=== PATIENT | female | born 1930 | race Caucasian/White ===

== ENCOUNTER 2017-04-19 11:06 | Inpatient (IN) | payer OTHER, MEDICARE ==
[~2017-04-19 11:06] MED LIST: cefOXitin SODIUM 2 GM in D5W 100 ML IV ONE
[2017-04-19] MEDS ORDERED: LR 1,000 ML IV ONE (12:05)
[2017-04-19] MEDS ORDERED: BUPIVACAINE 0.25% 30 ML SDV ONE ×2 (12:14→17:51)
--- NOTE | 2017-04-19 12:27 | PDHPUP ---
History & Physical Update H&P update statement: This history and physical update is based on an assessment of the patient which was completed after admission or registration (within 24 hours), but prior to the surgery/procedure. H&P update: H&P reviewed & patient examined (repeat labs pending pre-op/patient tolerated bowel prep without difficulty)
[2017-04-19] MEDS ORDERED: MIDAZOLAM 2 MG/2 ML VIAL IVP ONE ×2 (12:33→12:45)
[2017-04-19 12:34] LABS: % IMMATURE GRANULYOCYTES 0.2 % (0.0-1.1); ABSOLUTE IMMATURE GRANULOCYTES 0.01 10^3/uL (0.00-0.10); ADD DIFF? NO; ADD MORPH? NO; ADD SCAN? NO; ATYPICAL LYMPHOCYTE FLAG 0 (0-99); FRAGMENT RBC FLAG 20 (0-99); HEMATOCRIT 34.9 % (38.0-47.0); HEMOGLOBIN 11.3 g/dL (12.6-16.3); LEFT SHIFT FLG 0 (0-99); LIPEMIA HEMOLYSIS FLAG 80 (0-99); MEAN CELL HEMOGLOBIN 30.4 pg (27.9-34.1); MEAN CELL HEMOGLOBIN CONCENTR. 32.4 g/dL (32.4-36.7); MEAN CELL VOLUME 93.8 fL (81.5-99.8); MEAN PLATELET VOLUME 10.6 fL (8.7-11.7); PLATELET CLUMPS FLAG 10 (0-99); PLATELET COUNT 185 10^3/uL (150-400); RED BLOOD CELL COUNT 3.72 10^6/uL (4.18-5.33); RED CELL DISTRIBUTION WIDTH 14.8 % (11.5-15.2)
[2017-04-19] MEDS ORDERED: MIDAZOLAM 2 MG/2 ML VIAL ONE (12:34)
--- NOTE | 2017-04-19 12:34 | PDANEPAE ---
ANE History of Present Illness ap resection ANE Past Medical History - Cardiovascular History Hx Hypertension: Yes Hx Arrhythmias: Yes Hx Chest Pain: No Hx Coronary Artery / Peripheral Vascular Disease: Yes Hx CHF / Valvular Disease: Yes Hx Palpitations: No Cardiovascular History Comment: CAD. CHF. AFIB- CARDIOVERTED 10/27/13 CONT TO BE IN AND OUT - Pulmonary History Hx COPD: Yes Hx Asthma/Reactive Airway Disease: No Hx Recent Upper Respiratory Infection: No Hx Oxygen in Use at Home: Yes O2 in Use at Home (L/minute): 2 Hx Sleep Apnea: No Sleep Apnea Screening Result - Last Documented: Negative Pulmonary History Comment: PULM HTN - Neurologic History Hx Cerebrovascular Accident: Yes Hx Seizures: No Hx Dementia: No Neurologic History Comment: PERIPHERAL NEUROPATHY. 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 HYPOTHYROIDISM - Renal History Hx Renal Disorders: Yes Renal History Comment: CKD STG 3. INCONTINENT WEARS BRIEFS - Liver History Hx Hepatic Disorders: No - Neurological & Psychiatric Hx Hx Neurological and Psychiatric Disorders: Yes Neurological / Psychiatric History Comment: DEPRESSION - Cancer History Hx Cancer: Yes Cancer History Comment: RADIATION FINISHED 04/05/15. CHEMO. RECTAL CA. SKIN CA - Congenital Disorder History Hx Congenital Disorders: No - GI History Hx Gastrointestinal Disorders: Yes Gastrointestinal History Comment: FLEX SIG AND COLON 02/01/15. RECTAL CA - Other Health History Other Health History: ANEMIA. CHRONIC LOWER BACK PAIN - Chronic Pain History Chronic Pain: Yes (CHRONIC BACK PAIN) - Surgical History Prior Surgeries: RAGLAND ANAL EXC RECTAL CA 05/2015. HYSTERECTOMY. BREAST BX MULTIPLE. VEIN IN RIGHT LEG STRIPPED. FLEX SIG AND COLON 02/01/15. WILLIAN CATARACT ANE Review of Systems - Exercise capacity METS (RN): 2 METS ANE Patient History - Allergies Allergies/Adverse Reactions: Iodinated Contrast- Oral and IV Dye [IV Dye, Iodine Containing Contrast ] Allergy (Intermediate, Verified 02/01/15 17:04) Hives iodine [Iodine] Allergy (Intermediate, Verified 02/01/15 17:04) Hives latex Allergy (Verified 04/12/17 10:50) - Home Medications Home Medications: Atorvastatin Calcium [Lipitor 40 mg (*)] 40 mg PO HS 06/08/15 [Last Taken ] Doxazosin Mesylate [Cardura 4 MG (*)] 4 mg PO HS 06/08/15 [Last Taken 04/18/17] Levothyroxine [Synthroid 100 mcg (*)] 100 mcg PO DAILY 06/08/15 [Last Taken 10:00] Zolpidem Tartrate [Ambien 5MG (*)] 5 mg PO HS 06/08/15 [Last Taken 04/18/17] Hydrocodone/Acetaminophen [[place] 5/325 (*)] 1 - 2 tab PO Q4H PRN 06/09/15 [Last Taken 04/19/17 06:00] Torsemide [Demadex] 40 mg PO DAILY 06/09/15 [Last Taken 04/19/17 06:00] Herbals/Supplements -Info Only 1 ea PO DAILY 04/12/17 [Last Taken 04/12/17] Sertraline HCl [Zoloft 50mg (*)] 50 mg PO DAILY 04/12/17 [Last Taken 04/18/17 10 :00] - NPO status NPO Since - Liquids (Date): 04/19/17 NPO Since - Liquids (Time): 06:00 NPO Since - Solids (Date): 04/17/17 NPO Since - Solids (Time): 18:00 - Anes Hx Anes Hx: no prior problems - Smoking Hx Smoking Status: Former smoker - Family Anes Hx Family Hx Anesthesia Complications: NONE ANE Labs/Vital Signs - Labs Result Diagrams: 04/19/17 12:20 04/19/17 12:20 - Vital Signs Blood Pressure: 160/72 Heart Rate: 86 Respiratory Rate: 15 O2 Sat (%): 98 Height: 160.02 cm Weight: 66.678 kg ANE Physical Exam - Airway Mallampati Score: Class 2 Mouth exam: normal dental/mouth exam - Pulmonary Pulmonary: no respiratory distress - Cardiovascular Cardiovascular: regular rate and rhythym - ASA Status ASA Status: III ANE Anesthesia Plan Anesthesia Plan: general endotracheal anesthesia
[2017-04-19] MEDS ORDERED: ONDANSETRON 4 MG/2 ML VIAL ONE (12:43)
[2017-04-19] MEDS ORDERED: DEXAMETHASONE 4 MG/ML VIAL ONE (12:43)
[2017-04-19] MEDS ORDERED: LIDOCAINE 2% 5 ML SDV ONE (12:43)
[2017-04-19] MEDS ORDERED: ROCURONIUM 50 MG/5 ML VIAL ONE ×2 (12:43→13:26)
[2017-04-19 12:44] LABS: ALANINE AMINOTRANSFERASE 30 IU/L (9-52); ALBUMIN 4.1 g/dL (3.5-5.0); ALKALINE PHOSPHATASE 90 IU/L (38-126); ANION GAP 12 mEq/L (8-16); ASPARTATE AMINOTRANSFERASE 35 IU/L (14-46); BILIRUBIN,TOTAL 1.2 mg/dL (0.1-1.4); CALCIUM 9.7 mg/dL (8.5-10.4); CARBON DIOXIDE 26 mEq/l (22-31); CHLORIDE 104 mEq/L (97-110); CREATININE 1.2 mg/dL (0.6-1.0); GLOMERULAR FILTRATION RATE 42; GLUCOSE 98 mg/dL (70-100); MAGNESIUM 2.5 mg/dL (1.6-2.3); POTASSIUM 4.2 mEq/L (3.5-5.2); SODIUM 142 mEq/L (134-144); TOTAL PROTEIN 7.2 g/dL (6.3-8.2)
[2017-04-19] MEDS ORDERED: fentaNYL 100 MCG/2 ML INJ ONE ×3 (12:44→18:42)
[2017-04-19] MEDS ORDERED: PROPOFOL 200 MG/20 ML VIAL ONE (12:44)
[2017-04-19 12:45] LABS: INR 1.11 (0.83-1.16); PROTIME(PATIENT) 14.2 SEC (12.0-15.0)
[2017-04-19 12:46] LABS: APTT 35.6 SEC (23.0-38.0)
[2017-04-19] MEDS ORDERED: ALBUMIN 5% 250 ML BOTTLE IV ONE ×2 (14:19→15:42)
[2017-04-19] MEDS ORDERED: HYDROmorphONE/DILAUDID 2 MG/ML INJ ONE (14:39)
[2017-04-19] MEDS ORDERED: BACITRACIN 50,000 UNITS/10 ML SYR IRR ONE ×2 (14:51→17:30)
[2017-04-19] MEDS ORDERED: FUROSEMIDE 20 MG/2 ML VIAL ONE (15:40)
[2017-04-19] MEDS ORDERED: THROMBIN (BOVINE) 20,000 UNIT VIAL TP ONE (16:00)
[2017-04-19] MEDS ORDERED: LR 1,000 ML IV SCH (16:30)
[2017-04-19] MEDS ORDERED: LORazepam 2 MG/ML INJ IVP PRN (17:12)
[2017-04-19] MEDS ORDERED: SUGAMMADEX SODIUM 200 MG/2 ML VIAL IVP ONE (17:27)
[2017-04-19] MEDS ORDERED: ALBUTEROL 3 ML DEYVIAL IH PRN (17:34)
[2017-04-19] MEDS ORDERED: NALOXONE HCL 0.4 MG/ML INJ IVP PRN (17:34)
--- NOTE | 2017-04-19 18:28 | POSTANESTH ---
Post Anesthetic Evaluation Cardiovascular Status: Normal, Stable Respiratory Status: Normal, Stable Level of Consciousness/Mental Status: Can Participate in Eval Pain Control: Adequate, Prn Tx Ordered Nausea/Vomiting Control: Adequate, Prn Tx Ordered Complications Possibly Related to Anesthesia: None Noted
--- NOTE | 2017-04-19 18:31 | POSTOPPROG ---
Post Op Note Date of Operation: 04/19/17 Surgeon: Erickson Torres (, FACS) [employer] Worker: Malik Sebastian MD Anesthesiologist: Jace Gabriel MD Anesthesia: GET(General Endotracheal) Pre-op Diagnosis: recurrent rectal cancer Post-op Diagnosis: same Procedure: abdominal-perineal resection (Miles procedure) Findings: significant retroperitoneal scarring from RT Inf/Abcess present in the surg proc area at time of surgery?: No EBL: 50-100 (100ml) Complications: left ureteral thermal injury
[2017-04-19] MEDS ORDERED: HYDROmorphONE/DILAUDID 1 MG/ML SYR ONE (18:42)
[2017-04-19] MEDS: fentaNYL 100 MCG/2 ML INJ IVP PRN ×2 (18:50→19:16)
[2017-04-19] MEDS: HYDROmorphONE/DILAUDID 1 MG/ML SYR IVP PRN ×2 (18:51→19:16)
[2017-04-19 19:27] LABS: % IMMATURE GRANULYOCYTES 0.3 % (0.0-1.1); ABSOLUTE IMMATURE GRANULOCYTES 0.03 10^3/uL (0.00-0.10); ADD DIFF? NO; ADD MORPH? NO; ADD SCAN? NO; ATYPICAL LYMPHOCYTE FLAG 0 (0-99); FRAGMENT RBC FLAG 0 (0-99); HEMATOCRIT 30.8 % (38.0-47.0); HEMOGLOBIN 9.8 g/dL (12.6-16.3); LEFT SHIFT FLG 0 (0-99); LIPEMIA HEMOLYSIS FLAG 80 (0-99); MEAN CELL HEMOGLOBIN 30.4 pg (27.9-34.1); MEAN CELL HEMOGLOBIN CONCENTR. 31.8 g/dL (32.4-36.7); MEAN CELL VOLUME 95.7 fL (81.5-99.8); MEAN PLATELET VOLUME 10.6 fL (8.7-11.7); PLATELET CLUMPS FLAG 0 (0-99); PLATELET COUNT 151 10^3/uL (150-400); RED BLOOD CELL COUNT 3.22 10^6/uL (4.18-5.33); RED CELL DISTRIBUTION WIDTH 14.6 % (11.5-15.2)
[2017-04-19 19:43] LABS: ANION GAP 13 mEq/L (8-16); CARBON DIOXIDE 25 mEq/l (22-31); CHLORIDE 104 mEq/L (97-110); CREATININE 1.2 mg/dL (0.6-1.0); GLOMERULAR FILTRATION RATE 42; GLUCOSE 170 mg/dL (70-100); SODIUM 142 mEq/L (134-144)
[2017-04-19] MEDS: DOXAZOSIN MESYLATE 4 MG TAB PO SCH (21:27)
[2017-04-19] MEDS: ATORVASTATIN CALCIUM 40 MG TAB PO SCH (21:27)
[2017-04-19] MEDS: ENOXAPARIN 30 MG/0.3 ML SYR SC SCH (21:28)
[2017-04-19] MEDS: LR 1,000 ML IV SCH (21:28)
[2017-04-19] MEDS: ONDANSETRON 4 MG/2 ML VIAL IVP PRN (21:36)
[2017-04-20] MEDS: cefOXitin SODIUM 2 GM in D5W 100 ML IV SCH ×2 (00:10→13:22)
[2017-04-20] MEDS: LR 1,000 ML IV SCH ×2 (04:36→06:29)
[2017-04-20 05:11] LABS: % IMMATURE GRANULYOCYTES 0.4 % (0.0-1.1); ABSOLUTE IMMATURE GRANULOCYTES 0.05 10^3/uL (0.00-0.10); ADD DIFF? NO; ADD MORPH? NO; ADD SCAN? NO; ATYPICAL LYMPHOCYTE FLAG 0 (0-99); FRAGMENT RBC FLAG 0 (0-99); HEMATOCRIT 26.5 % (38.0-47.0); HEMOGLOBIN 8.4 g/dL (12.6-16.3); LEFT SHIFT FLG 10 (0-99); LIPEMIA HEMOLYSIS FLAG 80 (0-99); MEAN CELL HEMOGLOBIN 30.1 pg (27.9-34.1); MEAN CELL HEMOGLOBIN CONCENTR. 31.7 g/dL (32.4-36.7); MEAN PLATELET VOLUME 10.5 fL (8.7-11.7); PLATELET CLUMPS FLAG 0 (0-99); PLATELET COUNT 138 10^3/uL (150-400); RED BLOOD CELL COUNT 2.79 10^6/uL (4.18-5.33); RED CELL DISTRIBUTION WIDTH 14.7 % (11.5-15.2)
[2017-04-20 05:23] LABS: ANION GAP 12 mEq/L (8-16); CALCIUM 8.5 mg/dL (8.5-10.4); CARBON DIOXIDE 24 mEq/l (22-31); CHLORIDE 106 mEq/L (97-110); CREATININE 1.3 mg/dL (0.6-1.0); GLOMERULAR FILTRATION RATE 39; GLUCOSE 160 mg/dL (70-100); POTASSIUM 4.3 mEq/L (3.5-5.2); SODIUM 142 mEq/L (134-144)
[2017-04-20] MEDS: HYDROCODONE/APAP 5/325 TAB PO PRN ×3 (06:22→23:49)
--- NOTE | 2017-04-20 09:19 | GOP ---
[f rep st] OPERATIVE REPORT DATE OF OPERATION: 04/19/2017 SURGEON: Erickson Torres MD, FACS [place]OE[place]ACK: Malik Sebastian MD. ANESTHESIA: General endotracheal. ANESTHESIOLOGIST: Jace Gabriel MD. PREOPERATIVE DIAGNOSIS: Recurrent rectal cancer, status post neoadjuvant chemoradiation therapy and transanal resection in 2015. POSTOPERATIVE DIAGNOSIS: Recurrent rectal cancer, status post neoadjuvant chemoradiation therapy and transanal resection in 2015. PROCEDURE PERFORMED: Abdominoperineal resection (Miles procedure). FINDINGS: Significant obliteration of natural tissue planes between the rectum and the vagina, and the entire retroperitoneal space in the field of radiation. Mild radiation enteritis, small bowel/terminal ileum. ESTIMATED BLOOD LOSS: 100 mL. DESCRIPTION OF PROCEDURE: After informed consent was obtained, the patient was brought to the operating room and placed under general anesthesia. She was carefully padded and positioned in lithotomy. Rodriuges catheter was placed. The abdomen and perineum were prepped and draped in usual fashion. Before proceeding, a time-out and identification of the patient were performed. The abdomen was entered through a low midline incision with no anterior abdominal wall adhesions observed. The bowel was explored and, other than a few areas of scar tissue in the terminal ileum, there were no interloop adhesions. She had a prior hysterectomy and bilateral salpingo-oophorectomy. 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 There were no strictures observed. At the reflection of the cul-de-sac was an area of ink staining from a prior endoscopic tattoo. There was a firm mass in the rectum palpable through the scarred and inflamed peritoneum. There was no contraindication to proceeding with the surgery and no evidence of peritoneal spread of her disease. The peritoneum on either side of the rectosigmoid junction was incised with cautery and dissection carried out with cautery and the Harmonic Scalpel, taking down the lateral rectal stalks and entering a plane posteriorly through scar obliterated perirectal fat, ultimately freeing up the rectum from the sacral hollow. The mesentery was scored, and the bowel was divided with a single firing of the REJI stapler, leaving approximately 8 cm of sigmoid colon attached to the rectosigmoid junction. The proximal bowel was packed away, and the Omni-Tract retractor was used to facilitate exposure. The peritoneotomy was continued anteriorly, carefully dissecting along the rectal wall to avoid injury to the vagina. The vaginal cuff was particularly scarred to the anterior perirectal fat, but ultimately this plane opened up, and I was able to dissect a considerable distance from above. Dissection continued laterally on both sides and posteriorly until the levator muscles were identified. Going to the perineal portion of the procedure, the anus was sewn shut with a 2-0 Prolene suture, and the perineal incision made in elliptical fashion around the anal orifice and posterior to the vaginal introitus. The patient had some evidence of stenosis in the vaginal introitus that sustained trauma during the prep with a small tear in the vaginal skin. After the skin was incised, cautery was used to dissect in the ischiorectal plane laterally on each side and posteriorly to the tip of the coccyx. Anterior dissection was performed also with cautery, taking care to stay close to the anal rectum and avoid injury to the vagina. It was through the anterior plane that I was first able to enter the peritoneal portion of the dissection and freed up the levators on either side. These were then incised with cautery close to the rectal wall, and hemostasis secured with cautery primarily. This dissection was continued posteriorly on either side until the entire specimen could be delivered through the perineal incision. The posterior attachments of the levator to the tip of the coccyx were incised, and the specimen delivered from the field and submitted for gross inspection as well as permanent section. The significant perirectal scar tissue made it difficult to clinically determine whether this represented postradiation effect or tumor. The levator muscles were reapproximated with interrupted 2-0 Vicryl sutures. The perineal wound was drained with a 19-[place] silicone drain, as the patient was allergic to latex. Otherwise, I would have used a [place] drain. Superficial subcutaneous tissues were approximated over the drain with interrupted 2-0 Vicryl suture, and the skin was closed with 3-0 nylon suture in vertical mattress fashion. Returning to the abdominal portion of the operation, I felt it was necessary to further mobilize the sigmoid colon above the pelvic brim to reach the planned ostomy site. While I was providing traction on the colon from the left side, Dr. Sebastian performed dissection with the Harmonic Scalpel, mobilizing the colon cephalad. The Harmonic Scalpel came in contact with the ureter and, although it was not transected, it appeared to have sustained a thermal injury. The anatomy was confirmed, and I consulted Dr. Ruth, who promptly came to the operating room and assessed the injury and elected to perform a ureteral resection repair over a stent. This will be dictated as a separate operative report. The blood supply to the ureter appeared adequate, and hemostasis was secured within the area using sparing use of Harmonic Scalpel cautery and topical thrombin Gelfoam. After hemostasis appeared secure, the pelvis was irrigated, and a 10 mm flat Yoan-Lamb drain was placed into the dependent portion of the pelvis and brought through the right lower quadrant. The omentum was mobilized from the transverse colon to allow an omental flap to fill the pelvis. This was placed over the left ureter, pelvic brim and into the pelvis. The small bowel and cecum were allowed to return to their anatomic positions. The left-sided ostomy opening was created at the predetermined site , and the distal sigmoid colon was brought up through the ostomy opening in the abdominal wall. Internally, this was secured to the peritoneum with interrupted 2-0 Vicryl sutures. The abdominal cavity was again inspected for hemostasis, which appeared secure. The fascia was closed with continuous running #1 PDS suture. Subcutaneous tissues were irrigated with antibiotic solution, and the skin approximated with dora. Bilateral ON-Q catheters were tunneled adjacent to the incision with 5-inch catheters deployed and secured to the skin with Dermabond and Tegaderm. The ostomy was then matured, resecting the last 2 cm of the distal sigmoid colon. The bowel was everted and secured to the subdermis with interrupted 4-0 chromic sutures. An ostomy appliance was placed. Sterile dressings were applied to the perineum as well as the abdominal incision, and the patient was brought to the recovery room in satisfactory condition, extubated. COMPLICATIONS: Thermal injury to the left ureter near the pelvic brim induced by the Harmonic Scalpel. INTRAOPERATIVE CONSULTATION: With Dr. Michel Ruth obtained for operative repair of left ureteral injury. /[id number]/MODL MTDD
[2017-04-20] MEDS: TORSEMIDE 20 MG TAB PO SCH (09:48)
[2017-04-20] MEDS: ENOXAPARIN 30 MG/0.3 ML SYR SC SCH ×2 (09:49→21:41)
[2017-04-20] MEDS: SERTRALINE HCL 50 MG TAB PO SCH (09:49)
[2017-04-20] MEDS: LEVOTHYROXINE 100 MCG TAB PO SCH (09:52)
--- NOTE | 2017-04-20 11:05 | SOAPPROG ---
SOAP Progress Note Assessment/Plan: Assessment: Plan: Subjective: awake and alert/incisional pain Objective: Vital Signs Temp Pulse Resp BP Pulse Ox 36.7 C 82 15 124/56 H 100 04/20/17 08:00 04/20/17 08:00 04/20/17 08:00 04/20/17 08:00 04/20/17 08:00 Laboratory Results 04/20/17 05:03 04/20/17 05:03 04/19/17 04/20/17 04/21/17 05:59 05:59 05:59 Intake Total 3249 Output Total 788 Balance 2461 PT 14.2 SEC (12.0-15.0) 04/19/17 12:20 INR 1.11 (0.83-1.16) 04/19/17 12:20 Physical Exam - Physical Exam General Appearance: alert, mild distress Respiratory: lungs clear, decreased breath sounds Cardiac/Chest: regular rate, rhythm Abdomen: normal bowel sounds, soft, other (stoma viable/drains serosanguinous) ICD10 Worksheet Patient Problems: Problems Problem Status Onset Diabetes mellitus type 2 Active Gastritis Active Gout Active Hyperlipidemia Active Hypertensive disorder, systemic arterial Active Chronic Disease Management/Transitional Care Program Acute
[2017-04-20] MEDS: ATORVASTATIN CALCIUM 40 MG TAB PO SCH (21:40)
[2017-04-20] MEDS: DOXAZOSIN MESYLATE 4 MG TAB PO SCH (21:40)
[2017-04-20] MEDS: ONDANSETRON 4 MG/2 ML VIAL IVP PRN (21:42)
[2017-04-21] MEDS: LEVOTHYROXINE 100 MCG TAB PO SCH (04:50)
[2017-04-21] MEDS: HYDROCODONE/APAP 5/325 TAB PO PRN ×3 (04:50→18:55)
[2017-04-21 04:51] LABS: HEMATOCRIT 23.1 % (38.0-47.0); HEMOGLOBIN 7.3 g/dL (12.6-16.3); MEAN CELL HEMOGLOBIN 30.3 pg (27.9-34.1); MEAN CELL HEMOGLOBIN CONCENTR. 31.6 g/dL (32.4-36.7); MEAN CELL VOLUME 95.9 fL (81.5-99.8); RED BLOOD CELL COUNT 2.41 10^6/uL (4.18-5.33)
[2017-04-21 05:07] LABS: ANION GAP 8 mEq/L (8-16); CALCIUM 8.2 mg/dL (8.5-10.4); CARBON DIOXIDE 25 mEq/l (22-31); CHLORIDE 105 mEq/L (97-110); CREATININE 1.4 mg/dL (0.6-1.0); GLOMERULAR FILTRATION RATE 35; GLUCOSE 104 mg/dL (70-100); SODIUM 138 mEq/L (134-144)
--- NOTE | 2017-04-21 08:36 | SOAPPROG ---
SOAP Progress Note Assessment/Plan: Assessment:s/p APR for recurrent rectal CA post op blood loss anemia with pre-op anemia due to ongoing GI blood loss rising creat./post op ileus Plan: transfuse one unit PRBC Hospitalist consult 04/21/17 08:33 Objective: Vital Signs Temp Pulse Resp BP Pulse Ox 36.9 C 95 18 108/43 L 96 04/20/17 23:14 04/21/17 04:00 04/21/17 04:00 04/21/17 04:00 04/21/17 04:00 Laboratory Results 04/21/17 04:35 04/21/17 04:35 04/20/17 04/21/17 04/22/17 05:59 05:59 05:59 Intake Total 3249 3606 Output Total 788 1310 Balance 2461 2296 PT 14.2 SEC (12.0-15.0) 04/19/17 12:20 INR 1.11 (0.83-1.16) 04/19/17 12:20 - Pending Discharge Pending Discharge Within 24 Hours: No Pending Discharge Within 48 Hours: No Physical Exam - Physical Exam General Appearance: alert Respiratory: normal breath sounds, decreased breath sounds Cardiac/Chest: regular rate, rhythm Abdomen: soft, other (hypoactive bowel sounds/stoma viable/DARCIE serous) Rectal: deferred, other (DARCIE serous) Neuro/Psych: no motor/sensory deficits, alert ICD10 Worksheet Patient Problems: Problems Problem Status Onset Diabetes mellitus type 2 Active Gastritis Active Gout Active Hyperlipidemia Active Hypertensive disorder, systemic arterial Active Chronic Disease Management/Transitional Care Program Acute
[2017-04-21] MEDS: SERTRALINE HCL 50 MG TAB PO SCH (09:38)
[2017-04-21] MEDS: TORSEMIDE 20 MG TAB PO SCH (09:38)
[2017-04-21] MEDS: ENOXAPARIN 30 MG/0.3 ML SYR SC SCH (09:40)
--- NOTE | 2017-04-21 13:48 | PDGENHP ---
History and Physical - Chief Complaint Acute pelvic pain - History of Present Illness Consultation history and physical Consulting provider: Dr. Torres Reason for consultation: Chronic kidney disease HPI: 87-year-old female presents with acute pelvic pain located in the anterior pelvis, exacerbated by movement and palpation, associated with rectal bleeding. Onset of the bleeding was prior to her surgery and has been going on for quite some time. Onset of the pelvic pain is postoperative and has been alleviated with oral pain medication as well as morphine. Location is mostly the anterior pelvis and she denies overt rectal pain at this time. She also denies any overt shortness of breath or chest pain. She endorses that she is particularly thirsty & hungry for soup broth. Her oral intake since surgery on 04/19 has been very limited and she has continued to receive her home medications including torsemide. History Information - Allergies/Home Medication List Allergies/Adverse Reactions: Iodinated Contrast- Oral and IV Dye [IV Dye, Iodine Containing Contrast ] Allergy (Intermediate, Verified 02/01/15 17:04) Hives iodine [Iodine] Allergy (Intermediate, Verified 02/01/15 17:04) Hives latex Allergy (Verified 04/12/17 10:50) Home Medications: Atorvastatin Calcium [Lipitor 40 mg (*)] 40 mg PO HS 06/08/15 [Last Taken ] Doxazosin Mesylate [Cardura 4 MG (*)] 4 mg PO HS 06/08/15 [Last Taken 04/18/17] Levothyroxine [Synthroid 100 mcg (*)] 100 mcg PO DAILY 06/08/15 [Last Taken 10:00] Zolpidem Tartrate [Ambien 5MG (*)] 5 mg PO HS 06/08/15 [Last Taken 04/18/17] Hydrocodone/Acetaminophen [[place] 5/325 (*)] 1 - 2 tab PO Q4H PRN 06/09/15 [Last Taken 04/19/17 06:00] Torsemide [Demadex] 40 mg PO DAILY 06/09/15 [Last Taken 04/19/17 06:00] Herbals/Supplements -Info Only 1 ea PO DAILY 04/12/17 [Last Taken 04/12/17] Sertraline HCl [Zoloft 50mg (*)] 50 mg PO DAILY 04/12/17 [Last Taken 04/18/17 10 :00] I have personally reviewed and updated: family history, medical history, social history, surgical history - Past Medical History atrial fibrillation (Permanent not currently on systemic anticoagulation secondary to bleeding), coronary artery disease (Nonobstructive, last cardiac catheterization November of 2012), CHF (Diastolic, with ejection fraction of 40-45% , severe mitral regurgitation, moderate to severe tricuspid regurgitation, mild- to-moderate pulmonary hypertension), CVA (Right retinal), diabetes type 2, hypertension, hyperlipidemia, psychiatric history (Depression) Additional medical history: Rectal carcinoma receiving neoadjuvant chemo radiation in 2014. Left bundle branch block. Chronic kidney disease stage 3 with baseline creatinine 1.0-1.6. Neuropathy - Surgical History Additional surgical history: APR revision 04/19/17 Dr. Torres. Transanal resection surgery by Dr. Sebastian 2014. Left ureteral stent placement - Family History Additional family history: No family history of colon or rectal cancer, sister had lung cancer, no history of end-stage renal disease - Social History Smoking Status: Former smoker Alcohol Use: Occasionally (1 alcoholic beverage nightly) Drug Use: None Additional social history: Lives in [place], utilizes a [employer] Review of Systems ROS: 10pt was reviewed & negative except for what was stated in HPI & below Constitutional: Reports: other (Thirst) Gastrointestinal: Reports: abdominal pain Physical Exam Temp Pulse Resp BP Pulse Ox 36.4 C 83 18 99/75 L 96 04/21/17 11:59 04/21/17 11:59 04/21/17 11:59 04/21/17 11:59 04/21/17 11:59 O2 (L/minute) 3 Constitutional: chronically ill appearing, uncomfortable, No no apparent distress (Mild distress), No not in pain Eyes: PERRL, anicteric sclera, EOMI Ears, Nose, Mouth, Throat: hearing normal, dry mucous membranes Cardiovascular: systolic murmur (3/6 at apex), irregularly irregular, No tachycardia, No edema Respiratory: no respiratory distress, no rales or rhonchi, clear to auscultation Gastrointestinal: normoactive bowel sounds, tenderness (Moderate to mild palpation), distension (Mild), other (Central abdominal incision, left-sided ostomy, drains in place) Genitourinary: spencer in urethra (Esther appearing urine) Skin: other (Blood around incision site but no visible erythema) Neurologic: AAOx3, sensation intact bilaterally, No weakness (Motor strength 4/ 5 bilateral lower extremities) Psychiatric: interacting appropriately, not encephalopathic, thought process linear, anxious, No agitated Lab Data & Imaging Review 04/21/17 04:35 04/21/17 04:35 WBC 6.52 10^3/uL (3.80-9.50) 04/21/17 04:35 RBC 2.41 10^6/uL (4.18-5.33) L 04/21/17 04:35 Hgb 7.3 g/dL (12.6-16.3) L 04/21/17 04:35 Hct 23.1 % (38.0-47.0) L 04/21/17 04:35 MCV 95.9 fL (81.5-99.8) 04/21/17 04:35 MCH 30.3 pg (27.9-34.1) 04/21/17 04:35 MCHC 31.6 g/dL (32.4-36.7) L 04/21/17 04:35 RDW 15.0 % (11.5-15.2) 04/21/17 04:35 Plt Count 114 10^3/uL (150-400) L 04/21/17 04:35 MPV 10.5 fL (8.7-11.7) 04/20/17 05:03 Neut % (Auto) 90.3 % (39.3-74.2) H 04/20/17 05:03 Lymph % (Auto) 3.2 % (15.0-45.0) L 04/20/17 05:03 [place] % (Auto) 6.0 % (4.5-13.0) 04/20/17 05:03 Eos % (Auto) 0.0 % (0.6-7.6) L 04/20/17 05:03 Baso % (Auto) 0.1 % (0.3-1.7) L 04/20/17 05:03 Nucleat RBC Rel Count 0.0 % (0.0-0.2) 04/20/17 05:03 Absolute Neuts (auto) 10.54 10^3/uL (1.70-6.50) H 04/20/17 05:03 Absolute Lymphs (auto) 0.37 10^3/uL (1.00-3.00) L 04/20/17 05:03 Absolute Monos (auto) 0.70 10^3/uL (0.30-0.80) 04/20/17 05:03 Absolute Eos (auto) 0.00 10^3/uL (0.03-0.40) L 04/20/17 05:03 Absolute Basos (auto) 0.01 10^3/uL (0.02-0.10) L 04/20/17 05:03 Absolute Nucleated RBC 0.00 10^3/uL (0-0.01) 04/20/17 05:03 Immature Gran % 0.4 % (0.0-1.1) 04/20/17 05:03 Immature Gran # 0.05 10^3/uL (0.00-0.10) 04/20/17 05:03 PT 14.2 SEC (12.0-15.0) 04/19/17 12:20 INR 1.11 (0.83-1.16) 04/19/17 12:20 APTT 35.6 SEC (23.0-38.0) 04/19/17 12:20 Sodium 138 mEq/L (134-144) 04/21/17 04:35 Potassium 4.0 mEq/L (3.5-5.2) 04/21/17 04:35 Chloride 105 mEq/L (97-110) 04/21/17 04:35 Carbon Dioxide 25 mEq/l (22-31) 04/21/17 04:35 Anion Gap 8 mEq/L (8-16) 04/21/17 04:35 BUN 29 mg/dL (7-23) H 04/21/17 04:35 Creatinine 1.4 mg/dL (0.6-1.0) H 04/21/17 04:35 Estimated GFR 35 04/21/17 04:35 Glucose 104 mg/dL (70-100) H 04/21/17 04:35 Calcium 8.2 mg/dL (8.5-10.4) L 04/21/17 04:35 Magnesium 2.5 mg/dL (1.6-2.3) H 04/19/17 12:20 Total Bilirubin 1.2 mg/dL (0.1-1.4) 04/19/17 12:20 AST 35 IU/L (14-46) 04/19/17 12:20 ALT 30 IU/L (9-52) 04/19/17 12:20 Alkaline Phosphatase 90 IU/L (38-126) 04/19/17 12:20 Total Protein 7.2 g/dL (6.3-8.2) 04/19/17 12:20 Albumin 4.1 g/dL (3.5-5.0) 04/19/17 12:20 Patient ABO/Rh A POSITIVE 04/19/17 12:20 Antibody Screen NEGATIVE 04/19/17 12:20 Crossmatch IS Only See Detail 04/19/17 12:20 Enhanced Crossmatch See Detail 04/19/17 12:20 Assessment & Plan Assessment: 87-year-old female presents with recurrent rectal carcinoma requiring a APR revision, evaluating chronic kidney disease and volume status Plan: 1. Chronic kidney disease stage 3. Review of outside records indicates that baseline creatinine is 1.0-1.6, and most recent urine microalbumin to creatinine ratio is 65 (01/03/2017) indicating that she has relatively well controlled proteinuria -she is chronically on torsemide control her lower extremity edema in the setting of CKD well as chronic diastolic congestive heart failure -during the past 2 days postoperatively, the patient's oral intake has been minimal as her postoperative course has been complicated by postop ileus -she has continued to receive her home dosage of torsemide, per her request, and this has most likely resulted in mild hypovolemia although her urine output over the last 24 hours has been good (likely b/c of diuretics), approximately 1 L -this mild hypovolemia will most likely be mitigated by the unit of packed red blood cells she is currently receiving, and although we would normally dose IV Lasix following a blood transfusion in a patient with known CKD and diastolic CHF, would not recommend providing her with additional IV diuretics at this time as she has received her morning dose of 40 mg torsemide -until the patient's oral intake improves, I would recommend either holding or reducing the dosage of torsemide and reassessing her volume status on a daily basis -I have discussed this with the patient, and she is completely averse to holding the torsemide, will only allow us to halve the dosage -will order the torsemide for 20 mg daily tomorrow and hospital Medicine will continue to consult in this patient's care -will continue to monitor her daily creatinine and BUN levels as well as urine output and daily weights -at the present time, I would recommend against administering IV fluids as this will most likely result in hypovolemia and potentially put her into diastolic CHF, and the patient does not currently have acute kidney injury component 2. Permanent atrial fibrillation. Reviewed outside records including discharge summary by Elvia Woo 02/05/2015, reporting that systemic anticoagulation was discontinued secondary to rectal bleeding -currently not on systemic anticoagulation 3. Recurrent rectal carcinoma. Postop day [address] Torres, postop pain management , ostomy, drains under general surgery service -discussed with Dr. Torres, the patient is high risk for DVT, we have agreed to adjust her prophylactic blood thinner to heparin subcu 5000 units q.8 hours 4. Acute postoperative ileus. No significant ostomy stool output as yet, bowel sounds are present on physical exam, patient is hungry and has been placed on a clear liquid diet -continue to monitor for ostomy output 5. Acute blood loss anemia. Evidenced by hemoglobin declined from 11.3 preoperatively to 7.3 with visible evidence of blood loss from the surgical sites -receiving 1 unit PRBC today -monitor hemoglobin level on a daily basis 6. Chronic diastolic congestive heart failure. No evidence of acute exacerbation, she is high risk for volume overload postoperatively and as mentioned above, I would recommend assessing volume status on a daily basis and at this time will continue half dose of home torsemide 7. Left bundle branch block. Chronic, she has known non obstructive coronary disease most recent catheterization 2012, currently without any chest pain - EKG 02/04/15 w/ Afib/LBBB (personally interpreted) 8. Suspected atelectasis. Currently requiring 3 L nasal cannula oxygen, poor inspiratory effort particularly in the bases secondary to abdominal pain, continues incentive spirometer and become more aggressive once her pain is better managed High-level of medical complexity and risk, secondary to the issues outlined above. Hospital Medicine service will continue to consult on this patient's daily care.
[2017-04-21 16:16] LABS: HEMOGLOBIN 9.4 g/dL (12.6-16.3); MEAN CELL HEMOGLOBIN 30.3 pg (27.9-34.1); MEAN CELL HEMOGLOBIN CONCENTR. 32.4 g/dL (32.4-36.7); MEAN CELL VOLUME 93.5 fL (81.5-99.8); RED BLOOD CELL COUNT 3.1 10^6/uL (4.18-5.33); RED CELL DISTRIBUTION WIDTH 16.5 % (11.5-15.2)
[2017-04-21] MEDS: ATORVASTATIN CALCIUM 40 MG TAB PO SCH (20:41)
[2017-04-21] MEDS: DOXAZOSIN MESYLATE 4 MG TAB PO SCH (20:42)
[2017-04-21] MEDS: ZOLPIDEM TARTRATE 5 MG TAB PO PRN (21:42)
[2017-04-22 05:29] LABS: HEMATOCRIT 26.9 % (38.0-47.0); HEMOGLOBIN 8.8 g/dL (12.6-16.3)
[2017-04-22 05:38] LABS: ANION GAP 9 mEq/L (8-16); CALCIUM 8.3 mg/dL (8.5-10.4); CARBON DIOXIDE 26 mEq/l (22-31); CHLORIDE 106 mEq/L (97-110); CREATININE 1.2 mg/dL (0.6-1.0); GLOMERULAR FILTRATION RATE 42; GLUCOSE 86 mg/dL (70-100); POTASSIUM 3.6 mEq/L (3.5-5.2); SODIUM 141 mEq/L (134-144)
[2017-04-22] MEDS: LEVOTHYROXINE 100 MCG TAB PO SCH (06:10)
--- NOTE | 2017-04-22 06:45 | SOAPPROG ---
SOAP Progress Note Assessment/Plan: Assessment:s/p APR for recurrent rectal CA-Hopitalist consult appreciated H/H improved after one unit PRBC post op creat 1.2/UO adequate/DARCIE output up from pelvic drain post op ileus without colostomy output Plan: trial of diet advance increase activity OnQ catheters removed 04/21/17 08:33 04/22/17 06:42 Subjective: wants to try and eat something/awake and alert with good pain control Objective: Vital Signs Temp Pulse Resp BP Pulse Ox 37.2 C 85 12 135/63 H 97 04/22/17 04:03 04/22/17 04:03 04/22/17 04:03 04/22/17 04:03 04/22/17 04:03 Laboratory Results 04/22/17 04:54 04/22/17 04:54 04/21/17 04/22/17 04/23/17 05:59 05:59 05:59 Intake Total 3606 1900 110 Output Total 1310 1644 Balance 2296 256 110 PT 14.2 SEC (12.0-15.0) 04/19/17 12:20 INR 1.11 (0.83-1.16) 04/19/17 12:20 Physical Exam - Physical Exam General Appearance: alert, no apparent distress Respiratory: decreased breath sounds Cardiac/Chest: regular rate, rhythm, irregularly irregular Abdomen: normal bowel sounds, non-tender, soft, distended, other (stoma viable/ incision o.k./DARCIE pelvic drain sero-sang/DARCIE perineal drain-serous) Neuro/Psych: alert, normal mood/affect, oriented x 3 ICD10 Worksheet Patient Problems: Problems Problem Status Onset Diabetes mellitus type 2 Active Gastritis Active Gout Active Hyperlipidemia Active Hypertensive disorder, systemic arterial Active Chronic Disease Management/Transitional Care Program Acute
--- NOTE | 2017-04-22 08:52 | HOSPPROG ---
Hospitalist Progress Note Assessment/Plan: 87-year-old female with known rectal carcinoma, status post abdominal perineal resection on 04/19. Patient has known CKD, stage III, and CHF with diastolic dysfunction. Patient is new to me today. -Chronic kidney disease stage 3: Known baseline creatinine between 1.0 and 1.6. Creatinine today is 1.2. He MODESTA has been negative approximately 600 cc. She is receiving torsemide 20mg per day. Currently awake we are controlling both her volume status and preserving her renal function with this half dose. Plan to continue to watch the creatinine and her I and O. as she continues and improves and has oral intake will return to her full dose of diuretic. -permanent atrial fibrillation: AFib continue since she is off anticoagulation. If there is no signs of bleeding and her hemoglobin remained stable then will restart anticoagulation. Will re-evaluate in 24 hours. -recurrent rectal carcinoma: Pod 3. She is a high risk for DVT. She is currently on prophylactic heparin subcu at 5000 units q.8 hours. For her atrial fibrillation she should be on full-dose anticoagulation. -anemia with blood loss postoperatively and preoperatively. Patient is status post 1 unit PRBC. Hemoglobin currently 8.8. Will continue to follow on a daily basis. -postop ileus: No significant ostomy output. Patient is currently on a clear liquid diet and tolerating it. -chronic diastolic CHF: No signs of decompensation and patient tolerating torsemide at half dose nicely. -mild hypoxemia probably secondary to atelectasis she is currently on 3 L nasal prong oxygen. No significant history of pulmonary disease. -ECG shows LBBB. No complaints of chest pain. ECG is interpreted personally by myself. Plan: Daily CBC and follow the hemoglobin, follow MODESTA and creatinine with regards to her diuretic therapy, follow SA O2 and encourage incentive spirometer , PET activity. Subjective: Reports she is feeling improved though her abdominal pain continues. No nausea vomiting. Limited ostomy output. Urine output and an MODESTA shows a-600. Her pain management is adequate. Objective: Vital Signs Temp Pulse Resp BP Pulse Ox 36.8 C 93 20 148/73 H 91 L 04/22/17 08:30 04/22/17 08:30 04/22/17 08:30 04/22/17 08:30 04/22/17 08:30 Laboratory Results 04/22/17 04:54 04/22/17 04:54 04/21/17 04/22/17 04/23/17 05:59 05:59 05:59 Intake Total 3606 1900 110 Output Total 1310 1644 Balance 2296 256 110 PT 14.2 SEC (12.0-15.0) 04/19/17 12:20 INR 1.11 (0.83-1.16) 04/19/17 12:20 Laboratory Tests 04/19/17 04/19/17 04/22/17 12:20 12:20 04:54 Hgb 11.3 L 8.8 L Creatinine 1.2 H 04/22/17 04:54 Hgb Creatinine 1.2 H - Time Spent With Patient Time Spent with Patient: greater than 35 minutes Time Spent with Patient: Greater than 35 minutes spent on this patients care, greater than 50% of time spent counseling, educating, and coordinating care regarding the above mentioned plan. - Pending Discharge Pending Discharge Within 24 Hours: No Pending Discharge Within 48 Hours: No - Physical Exam Constitutional: no apparent distress Eyes: PERRL Ears, Nose, Mouth, Throat: moist mucous membranes Cardiovascular: irregularly irregular Respiratory: no respiratory distress, no rales or rhonchi Gastrointestinal: normoactive bowel sounds, tenderness, other (Ostomy was limited output. No signs of bleeding) Genitourinary: no bladder fullness Skin: warm Musculoskeletal: generalized weakness Neurologic: AAOx3, CN II-XII Intact ICD10 Worksheet Patient Problems: Problems Problem Status Onset Diabetes mellitus type 2 Active Gastritis Active Gout Active Hyperlipidemia Active Hypertensive disorder, systemic arterial Active Chronic Disease Management/Transitional Care Program Acute
[2017-04-22] MEDS: HYDROCODONE/APAP 5/325 TAB PO PRN ×3 (09:11→18:19)
[2017-04-22] MEDS: TORSEMIDE 20 MG TAB PO SCH (09:12)
[2017-04-22] MEDS: HEPARIN 5,000 UNIT/0.5 ML SYR SC SCH ×3 (09:12→21:35)
[2017-04-22] MEDS: SERTRALINE HCL 50 MG TAB PO SCH (09:12)
[2017-04-22] MEDS: DOXAZOSIN MESYLATE 4 MG TAB PO SCH (20:41)
[2017-04-22] MEDS: ATORVASTATIN CALCIUM 40 MG TAB PO SCH (20:41)
[2017-04-22] MEDS: ZOLPIDEM TARTRATE 5 MG TAB PO PRN (21:35)
[2017-04-23] MEDS: HEPARIN 5,000 UNIT/0.5 ML SYR SC SCH ×3 (05:13→21:01)
[2017-04-23] MEDS: LEVOTHYROXINE 100 MCG TAB PO SCH (05:14)
[2017-04-23 05:26] LABS: HEMATOCRIT 27.3 % (38.0-47.0); HEMOGLOBIN 8.7 g/dL (12.6-16.3)
[2017-04-23 05:41] LABS: ANION GAP 8 mEq/L (8-16); CALCIUM 8.2 mg/dL (8.5-10.4); CARBON DIOXIDE 27 mEq/l (22-31); CHLORIDE 106 mEq/L (97-110); CREATININE 1.2 mg/dL (0.6-1.0); GLOMERULAR FILTRATION RATE 42; GLUCOSE 78 mg/dL (70-100); POTASSIUM 3.4 mEq/L (3.5-5.2); SODIUM 141 mEq/L (134-144)
--- NOTE | 2017-04-23 08:01 | SOAPPROG ---
SOAP Progress Note Assessment/Plan: Assessment:s/p APR for recurrent rectal CA-Hopitalist consult appreciated H/H stable creat 1.2/UO adequate/DARCIE output down from pelvic drain post op ileus without colostomy output yet Plan: trial of diet advance increase activity/perineal drain removal tomorrow Full anticoagulation for A-fib discussed with Dr. Todd 04/21/17 08:33 04/22/17 06:42 04/23/17 07:58 Subjective: gas pains/no nausea Objective: Vital Signs Temp Pulse Resp BP Pulse Ox 36.7 C 94 17 145/71 H 95 04/23/17 04:00 04/23/17 04:00 04/23/17 04:00 04/23/17 04:49 04/23/17 04:00 Laboratory Results 04/23/17 04:32 04/23/17 04:32 04/22/17 04/23/17 04/24/17 05:59 05:59 05:59 Intake Total 1900 1110 Output Total 1644 1762 Balance 256 -652 PT 14.2 SEC (12.0-15.0) 04/19/17 12:20 INR 1.11 (0.83-1.16) 04/19/17 12:20 - Pending Discharge Pending Discharge Within 24 Hours: No Pending Discharge Within 48 Hours: No Physical Exam - Physical Exam General Appearance: mild distress Cardiac/Chest: irregularly irregular Abdomen: soft, distended, other (incision o.k., mild distension with tenderness , stoma viable) ICD10 Worksheet Patient Problems: Problems Problem Status Onset Diabetes mellitus type 2 Active Gastritis Active Gout Active Hyperlipidemia Active Hypertensive disorder, systemic arterial Active Chronic Disease Management/Transitional Care Program Acute
--- NOTE | 2017-04-23 08:44 | HOSPPROG ---
Hospitalist Progress Note Assessment/Plan: 87-year-old female with known rectal carcinoma, status post abdominal perineal resection on 04/19. Patient has known CKD, stage III, and CHF with diastolic dysfunction. New problems today at low potassium at 3.4, mild increase in BP, and question of full dose anticoagulation -Chronic kidney disease stage 3: Known baseline creatinine between 1.0 and 1.6. Creatinine today is 1.2. She is receiving torsemide 20mg per day. Currently awake we are controlling both her volume status and preserving her renal function with this half dose. Plan to continue to watch the creatinine and her I and O. as she continues and improves and has oral intake will return to her full dose of diuretic. -permanent atrial fibrillation: AFib continue since she is off anticoagulation , on prophylactic SC heparin. Prince Vasc 2 score of 7.5% per year risk of stroke. Patient does not want to take coumadin again. She has been off coumadin for Approximately 6 months without incidence. -recurrent rectal carcinoma: Pod 4. She is a high risk for DVT. She is currently on prophylactic heparin subcu at 5000 units q.8 hours. For her atrial fibrillation she should be on full-dose anticoagulation. -anemia with blood loss postoperatively and preoperatively. Patient is status post 1 unit PRBC. Hemoglobin currently 8.8. No signs of bleeding are noted.Will continue to follow on a daily basis. - Hypokalemia: New problem. Will replete orally. -postop ileus: No significant ostomy output. Patient is currently on a clear to full liquid diet and tolerating it. -chronic diastolic CHF: No signs of decompensation and patient tolerating torsemide at half dose nicely. -mild hypoxemia probably secondary to atelectasis she is currently on 3 L nasal prong oxygen. No significant history of pulmonary disease. -ECG shows LBBB. No complaints of chest pain. ECG is interpreted personally by myself. Plan: Daily CBC and follow the hemoglobin, follow MODESTA and creatinine with regards to her diuretic therapy, follow SA O2 and encourage incentive spirometer , Replete potassium. - Disposition: Unknown will need a SNF placement. Time: 40 minutes. Subjective: abdominal pain but not severe pain. No nausea or vomiting. There has been limited ostomy output although her abdomen is less tender than it was yesterday. Objective: Vital Signs Temp Pulse Resp BP Pulse Ox 36.7 C 94 17 145/71 H 95 04/23/17 04:00 04/23/17 04:00 04/23/17 04:00 04/23/17 04:49 04/23/17 04:00 Laboratory Results 04/23/17 04:32 04/23/17 04:32 04/22/17 04/23/17 04/24/17 05:59 05:59 05:59 Intake Total 1900 1110 Output Total 1644 1762 Balance 256 -652 PT 14.2 SEC (12.0-15.0) 04/19/17 12:20 INR 1.11 (0.83-1.16) 04/19/17 12:20 Laboratory Tests 04/19/17 04/21/17 04/21/17 16:29 04:35 16:08 Hgb 9.8 L 7.3 L 9.4 L Potassium 04/22/17 04/23/17 04/23/17 04:54 04:32 04:32 Hgb 8.8 L 8.7 L Potassium 3.4 L - Physical Exam Constitutional: no apparent distress Eyes: PERRL Ears, Nose, Mouth, Throat: moist mucous membranes Cardiovascular: irregularly irregular Respiratory: no respiratory distress, no rales or rhonchi Gastrointestinal: other ( Active bowel sounds though may be hypoactive. There is tenderness about the ostomy site in general in the abdomen but no clear rebound or guarding is noted.) Genitourinary: no bladder fullness Skin: warm Musculoskeletal: generalized weakness Neurologic: AAOx3, CN II-XII Intact Psychiatric: interacting appropriately ICD10 Worksheet Patient Problems: Problems Problem Status Onset Diabetes mellitus type 2 Active Gastritis Active Gout Active Hyperlipidemia Active Hypertensive disorder, systemic arterial Active Chronic Disease Management/Transitional Care Program Acute
--- NOTE | 2017-04-23 09:45 | WOCRNPDOC ---
WOCRN Advanced Assessment Note - Skin Integrity Problem, Advanced Assess Right Sacrum Dressing Type: Open to Air Site Measurement - Head-to-Toe Length X Width X Depth (cm): 5x8x0 Skin Integrity Problem Comment: Healing contusion from fall. No concerns. Intergluteal cleft with mild dermatitis and moisture. No pressure areas found. Incision site around anus approximated with sutures and non erythematic. Wound care will not follow for wounds. Ostomy teaching will be initiated for colostomy. - Colostomy Assessment, Advanced Left Lower Abdomen Colostomy Stoma Colostomy Appliance Intact: Yes Colostomy Appliance Currently in Use: Two Piece Flat Stoma Color: [place] Stoma Turgor: Moist Stoma Shape: Round Stoma Height: Protruding Slightly Colostomy Effluent: Serosangenous, Bloody Colostomy Comment/Treatment Details: Ostomy Education initiated with patient. Discussed options for pouching and products. Questions answered. Asked patient to read through "Understanding your Colostomy" booklet and website project manager will round tomorrow to discuss further. Patient fatigued and overwhelmed somewhat easily so information/dicussion was kept to 15-20 min. RN Miranda reports patient will likely go to SNF so supplies will not be ordered at this time. Patient verbally consented to enroll in [employer] secure start and that will be initiated. Staff to help patient learn to empty pouch as well.
[2017-04-23] MEDS: TORSEMIDE 20 MG TAB PO SCH (09:47)
[2017-04-23] MEDS: SERTRALINE HCL 50 MG TAB PO SCH (09:48)
[2017-04-23] MEDS: HYDROCODONE/APAP 5/325 TAB PO PRN ×4 (09:48→18:49)
[2017-04-23] MEDS: POTASSIUM CL 20 MEQ/15 ML UDCUP PO SCH ×2 (11:05→20:50)
[2017-04-23] MEDS: DOXAZOSIN MESYLATE 4 MG TAB PO SCH (20:50)
[2017-04-23] MEDS: ATORVASTATIN CALCIUM 40 MG TAB PO SCH (20:50)
[2017-04-23] MEDS: ZOLPIDEM TARTRATE 5 MG TAB PO PRN (21:06)
[2017-04-24 05:21] LABS: % IMMATURE GRANULYOCYTES 0.5 % (0.0-1.1); ABSOLUTE IMMATURE GRANULOCYTES 0.03 10^3/uL (0.00-0.10); ADD DIFF? NO; ADD MORPH? NO; ADD SCAN? NO; ATYPICAL LYMPHOCYTE FLAG 0 (0-99); FRAGMENT RBC FLAG 0 (0-99); HEMATOCRIT 26.4 % (38.0-47.0); HEMOGLOBIN 8.4 g/dL (12.6-16.3); LEFT SHIFT FLG 0 (0-99); LIPEMIA HEMOLYSIS FLAG 80 (0-99); MEAN CELL HEMOGLOBIN CONCENTR. 31.8 g/dL (32.4-36.7); MEAN CELL VOLUME 94.3 fL (81.5-99.8); MEAN PLATELET VOLUME 10.7 fL (8.7-11.7); PLATELET CLUMPS FLAG 0 (0-99); PLATELET COUNT 127 10^3/uL (150-400); RED CELL DISTRIBUTION WIDTH 14.8 % (11.5-15.2)
[2017-04-24] MEDS: HEPARIN 5,000 UNIT/0.5 ML SYR SC SCH (05:32)
[2017-04-24] MEDS: LEVOTHYROXINE 100 MCG TAB PO SCH (05:32)
[2017-04-24 05:36] LABS: ANION GAP 7 mEq/L (8-16); CALCIUM 8.2 mg/dL (8.5-10.4); CARBON DIOXIDE 27 mEq/l (22-31); CHLORIDE 105 mEq/L (97-110); CREATININE 1.1 mg/dL (0.6-1.0); GLOMERULAR FILTRATION RATE 47; GLUCOSE 83 mg/dL (70-100); POTASSIUM 3.9 mEq/L (3.5-5.2); SODIUM 139 mEq/L (134-144)
--- NOTE | 2017-04-24 09:30 | SOAPPROG ---
SOAP Progress Note Assessment/Plan: Assessment:s/p APR for recurrent rectal CA-Hopitalist consult appreciated H/H stable creat 1.2/UO adequate/DARCIE output down from pelvic drain post op ileus without significant colostomy output yet Plan: trial of diet advance increase activity/perineal drain removal today Full anticoagulation for A-fib discussed with Dr. Todd 04/21/17 08:33 04/22/17 06:42 04/23/17 07:58 04/24/17 09:27 Subjective: awake/slept poorly Objective: Vital Signs Temp Pulse Resp BP Pulse Ox 36.6 C 91 18 130/64 H 94 04/24/17 04:00 04/24/17 04:00 04/24/17 04:00 04/24/17 04:00 04/24/17 04:00 Laboratory Results 04/24/17 04:36 04/24/17 04:36 04/23/17 04/24/17 04/25/17 05:59 05:59 05:59 Intake Total 1110 1425 Output Total 1762 1375 Balance -652 50 PT 14.2 SEC (12.0-15.0) 04/19/17 12:20 INR 1.11 (0.83-1.16) 04/19/17 12:20 - Pending Discharge Pending Discharge Within 24 Hours: No Pending Discharge Within 48 Hours: No Physical Exam - Physical Exam General Appearance: mild distress Cardiac/Chest: irregularly irregular Abdomen: normal bowel sounds, soft, other (incisions o.k./stoma pink/DARCIE sero sang) Pelvic Exam: other (perineal drain removed) Skin: warm/dry Neuro/Psych: normal mood/affect, oriented x 3 ICD10 Worksheet Patient Problems: Problems Problem Status Onset Diabetes mellitus type 2 Active Gastritis Active Gout Active Hyperlipidemia Active Hypertensive disorder, systemic arterial Active Chronic Disease Management/Transitional Care Program Acute
[2017-04-24] MEDS: SERTRALINE HCL 50 MG TAB PO SCH (09:48)
[2017-04-24] MEDS: POTASSIUM CL 20 MEQ/15 ML UDCUP PO SCH ×2 (09:48→21:00)
[2017-04-24] MEDS: HYDROCODONE/APAP 5/325 TAB PO PRN ×3 (09:48→20:59)
[2017-04-24] MEDS: TORSEMIDE 20 MG TAB PO SCH (09:48)
--- NOTE | 2017-04-24 10:49 | HOSPPROG ---
Hospitalist Progress Note Assessment/Plan: 87-year-old female with known rectal carcinoma, status post abdominal perineal resection on 04/19. Patient has known CKD, stage III, and CHF with diastolic dysfunction. new to my care 04/24 with: #hypokalemia (resolved) #permanent atrial fibrillation: -Prince Vasc 2 score of 7.5% per year risk of stroke. -pt understands risk of stroke while off of anticoagulation and does not want to take coumadin or other anticoagulants with the exception of asa again again. -Chronic kidney disease stage 3: Known baseline creatinine between 1.0 and 1.6. Creatinine today is 1.2. She is receiving torsemide 20mg per day. Currently awake we are controlling both her volume status and preserving her renal function with this half dose. Plan to continue to watch the creatinine and her I and O. as she continues and improves and has oral intake will return to her full dose of diuretic. -recurrent rectal carcinoma: She is a high risk for DVT. will change heparin to lovenox -anemia with blood loss postoperatively and preoperatively. Patient is status post 1 unit PRBC. Hemoglobin currently 8.8. No signs of bleeding are noted.Will continue to follow on a daily basis. - Hypokalemia: New problem. Will replete orally. -postop ileus: No significant ostomy output. Patient is currently on a clear to full liquid diet and tolerating it. -chronic diastolic CHF: No signs of decompensation and patient tolerating torsemide at half dose nicely. -mild hypoxemia probably secondary to atelectasis she is currently on 3 L nasal prong oxygen. No significant history of pulmonary disease. -ECG shows LBBB. No complaints of chest pain. ECG is interpreted personally by myself. Plan: Daily CBC and follow the hemoglobin, follow MODESTA and creatinine with regards to her diuretic therapy, follow SA O2 and encourage incentive spirometer , Replete potassium. - Disposition: Unknown will need a SNF placement. Subjective: good appetite. undure if she is passing flatus. little ostomy output Objective: Vital Signs Temp Pulse Resp BP Pulse Ox 36.6 C 91 18 130/64 H 94 04/24/17 04:00 04/24/17 04:00 04/24/17 04:00 04/24/17 04:00 04/24/17 04:00 Laboratory Results 04/24/17 04:36 04/24/17 04:36 04/23/17 04/24/17 04/25/17 05:59 05:59 05:59 Intake Total 1110 1425 Output Total 1762 1375 Balance -652 50 PT 14.2 SEC (12.0-15.0) 04/19/17 12:20 INR 1.11 (0.83-1.16) 04/19/17 12:20 - Physical Exam Constitutional: no apparent distress, appears nourished, not in pain Cardiovascular: irregularly irregular, No edema Respiratory: no respiratory distress, no rales or rhonchi, clear to auscultation Gastrointestinal: soft, non-tender abdomen, no palpable masses, distension, other (hypoactive bowel sounds) Neurologic: AAOx3, sensation intact bilaterally ICD10 Worksheet Patient Problems: Problems Problem Status Onset Diabetes mellitus type 2 Active Gastritis Active Gout Active Hyperlipidemia Active Hypertensive disorder, systemic arterial Active Chronic Disease Management/Transitional Care Program Acute
--- NOTE | 2017-04-24 18:40 | WOCRNPDOC ---
[facility] Advanced Assessment Note - Colostomy Assessment, Advanced Left Lower Abdomen Colostomy Stoma Colostomy Appliance Intact: Yes Colostomy Appliance Currently in Use: Two Piece Flat, 2 3/4 Stoma Color: Red Stoma Turgor: Moist Stoma Shape: Oval Stoma Height: Protruding Slightly Mucocutaneus Junction: Intact Colostomy Effluent: Serosangenous Colostomy Size - Head-to-Toe Length X Width X Depth (cm): 1 3/4 Peristomal Skin: Intact Colostomy Comment/Treatment Details: Moderate peristomal swelling noted. There is also a purple area distal to the stoma, that may be a contusion from patient pushing appliance against her body with a blanket to brace her abdomen. It may be a deep tissue injury, however it is unclear at this time. It is approx 3 cm long and is shaped like the plastic part of the two piece appliance where the pouch and the faceplate connect in a U. RN Miranda visualized area. Viv stomal skin was cleaned with water and washcloth. A new appliance was measured and a template cut. Patient watched appliance change and verbalized feeling "overwhelmed". Education with patient about two piece appliances vs one piece appliances done. Suggest patient use a one piece appliance for home and future changes. Several one piece appliances will be sent down to the floor. Wound/ small offset printer will follow up again for further teaching. All questions answered and patient was able to participate in removing the tape backing from the faceplate after it was placed on her abdomen and to help roll up the lock and roll pouch.
[2017-04-24] MEDS: ATORVASTATIN CALCIUM 40 MG TAB PO SCH (20:58)
[2017-04-24] MEDS: ZOLPIDEM TARTRATE 5 MG TAB PO PRN (20:58)
[2017-04-24] MEDS: DOXAZOSIN MESYLATE 4 MG TAB PO SCH (20:59)
[2017-04-25] MEDS: LEVOTHYROXINE 100 MCG TAB PO SCH (06:29)
--- NOTE | 2017-04-25 08:21 | SOAPPROG ---
SOAP Progress Note Assessment/Plan: Assessment:s/p APR for recurrent rectal CA-Hopitalist consult appreciated H/H stable/final path remains pending creat 1.1/UO adequate/DARCIE output down from pelvic drain post op ileus without significant colostomy output yet Plan: continue diet advance as tolerated increase activity discussed need for Rodrigues removal with patient who is reluctant due to immobility issues 04/21/17 08:33 04/22/17 06:42 04/23/17 07:58 04/24/17 09:27 04/25/17 08:18 04/25/17 08:21 Subjective: awake and alert/tolerating small amounts of food/no ostomy output yet Objective: Vital Signs Temp Pulse Resp BP Pulse Ox 36.6 C 82 16 148/63 H 95 04/25/17 04:00 04/25/17 04:00 04/25/17 04:00 04/25/17 04:00 04/25/17 04:00 Laboratory Results 04/24/17 04:36 04/24/17 04:36 04/24/17 04/25/17 04/26/17 05:59 05:59 05:59 Intake Total 1425 1300 Output Total 1375 1665 Balance 50 -365 PT 14.2 SEC (12.0-15.0) 04/19/17 12:20 INR 1.11 (0.83-1.16) 04/19/17 12:20 - Pending Discharge Pending Discharge Within 24 Hours: No Pending Discharge Within 48 Hours: No Physical Exam - Physical Exam General Appearance: alert, no apparent distress Respiratory: lungs clear, normal breath sounds Cardiac/Chest: irregularly irregular Abdomen: non-tender, soft, distended, other (incision/stoma o.k.) Skin: warm/dry Neuro/Psych: alert, normal mood/affect ICD10 Worksheet Patient Problems: Problems Problem Status Onset Diabetes mellitus type 2 Active Gastritis Active Gout Active Hyperlipidemia Active Hypertensive disorder, systemic arterial Active Chronic Disease Management/Transitional Care Program Acute
[2017-04-25] MEDS: POTASSIUM CL 20 MEQ/15 ML UDCUP PO SCH (09:54)
[2017-04-25] MEDS: SERTRALINE HCL 50 MG TAB PO SCH (09:54)
[2017-04-25] MEDS: TORSEMIDE 20 MG TAB PO SCH (09:54)
[2017-04-25] MEDS: HYDROCODONE/APAP 5/325 TAB PO PRN ×3 (09:54→20:31)
[2017-04-25] MEDS: ENOXAPARIN 40 MG/0.4 ML SYR SC SCH (09:56)
[2017-04-25] MEDS: ONDANSETRON 4 MG/2 ML VIAL IVP PRN (10:52)
--- NOTE | 2017-04-25 13:16 | HOSPPROG ---
Hospitalist Progress Note Assessment/Plan: 87-year-old female with known rectal carcinoma, status post abdominal perineal resection on 04/19. Patient has known CKD, stage III, and CHF with diastolic dysfunction. new to my care 04/24 with: #hypokalemia (resolved) -refusing po K+ replacement due to gi upset #permanent atrial fibrillation: -Prince Vasc 2 score of 7.5% per year risk of stroke. -pt understands risk of stroke while off of anticoagulation and does not want to take coumadin or other anticoagulants with the exception of asa again again. -Chronic kidney disease stage 3: Known baseline creatinine between 1.0 and 1.6. Creatinine today is 1.2. She is receiving torsemide 20mg per day. Currently awake we are controlling both her volume status and preserving her renal function with this half dose. Plan to continue to watch the creatinine and her I and O. as she continues and improves and has oral intake will return to her full dose of diuretic. -recurrent rectal carcinoma: She is a high risk for DVT. will change heparin to lovenox -anemia with blood loss postoperatively and preoperatively. Patient is status post 1 unit PRBC. Hemoglobin currently 8.8. No signs of bleeding are noted.Will continue to follow on a daily basis. - Hypokalemia: New problem. Will replete orally. -postop ileus: No significant ostomy output. Patient is currently on a clear to full liquid diet and tolerating it. -chronic diastolic CHF: No signs of decompensation and patient tolerating torsemide at half dose nicely. -mild hypoxemia probably secondary to atelectasis she is currently on 3 L nasal prong oxygen. No significant history of pulmonary disease. -ECG shows LBBB. No complaints of chest pain. ECG is interpreted personally by myself. - Disposition: Unknown will need a SNF placement. pt requests to have spencer stay in despite risks of infection Subjective: still feels very weak. no ostomy output. having a hard time ambulating with walker and getting to bathrooms Objective: Vital Signs Temp Pulse Resp BP Pulse Ox 36.7 C 99 16 127/67 H 98 04/25/17 11:23 04/25/17 11:23 04/25/17 11:23 04/25/17 11:23 04/25/17 11:23 Laboratory Results 04/24/17 04:36 04/24/17 04:36 04/24/17 04/25/17 04/26/17 05:59 05:59 05:59 Intake Total 1425 1300 Output Total 1375 1665 270 Balance 50 -365 -270 PT 14.2 SEC (12.0-15.0) 04/19/17 12:20 INR 1.11 (0.83-1.16) 04/19/17 12:20 - Physical Exam Constitutional: no apparent distress, appears nourished, not in pain Cardiovascular: irregularly irregular, No JVD, No edema Respiratory: no respiratory distress, no rales or rhonchi, clear to auscultation Gastrointestinal: soft, non-tender abdomen, no palpable masses, other ( hypoactive bowel sounds) ICD10 Worksheet Patient Problems: Problems Problem Status Onset Hypertensive disorder, systemic arterial Active Gastritis Active Hyperlipidemia Active Diabetes mellitus type 2 Active Gout Active Chronic Disease Management/Transitional Care Program Acute
--- NOTE | 2017-04-25 15:57 | WOCRNPDOC ---
[facility] Advanced Assessment Note - Colostomy Assessment, Advanced Left Lower Abdomen Colostomy Stoma Colostomy Appliance Intact: Yes Colostomy Appliance Currently in Use: Two Piece Flat, 2 3/4 Stoma Color: Red Stoma Turgor: Moist Stoma Shape: Oval Stoma Height: Protruding Slightly Colostomy Effluent: None Colostomy Comment/Treatment Details: Educational follow up done with patient. Patient is hesitant to try and change pouch again today expressing "I dont feel well at all" and opted to wait. She did not have any questions, however was concerned about her stoma not producing output. Spent 15 min with patient discussing osotmy care and products again. Discussed the difficulty in getting a pre-cut appliance as her stoma is oval. She expressed concern about not being able to cut the pouch herself and didnt want to ask her family. There may be caregivers at the [facility] that can cut her pouches for her ahead of time according to the template. Discussed other aspects of care and ostomy support as well. Patient verbalized understanding but also had forgotten some of our teaching from yesterday. Shay student RN's in room for care. accountant budget will round again next week. Please use the one piece ostomy appliances that were given to RN today for ostomy change if ostomy pouch leaks before client strategist rounds. Report to Miranda DIAZ.
[2017-04-25] MEDS ORDERED: ONDANSETRON DISINTEGRATING 4 MG TAB PO PRN (16:30)
[2017-04-25] MEDS: DOXAZOSIN MESYLATE 4 MG TAB PO SCH (20:28)
[2017-04-25] MEDS: ATORVASTATIN CALCIUM 40 MG TAB PO SCH (20:28)
[2017-04-25] MEDS: ZOLPIDEM TARTRATE 5 MG TAB PO PRN (20:30)
[2017-04-25] MEDS ORDERED: POTASSIUM CL 20 MEQ TAB PO SCH (21:00)
[2017-04-26] MEDS: LEVOTHYROXINE 100 MCG TAB PO SCH (05:38)
[2017-04-26] MEDS: TORSEMIDE 20 MG TAB PO SCH (08:34)
[2017-04-26] MEDS: HYDROCODONE/APAP 5/325 TAB PO PRN ×3 (08:34→20:31)
[2017-04-26] MEDS: SERTRALINE HCL 50 MG TAB PO SCH (08:34)
[2017-04-26] MEDS: ENOXAPARIN 40 MG/0.4 ML SYR SC SCH (08:35)
--- NOTE | 2017-04-26 09:02 | SOAPPROG ---
SOAP Progress Note Assessment/Plan: Assessment:s/p APR for recurrent rectal CA-Hopitalist consult appreciated H/H stable/final path T3N0 adenocarcinoma-radial margins clear creat 1.1/UO adequate/DARCIE output down from pelvic drain post op ileus without significant colostomy output yet Plan: continue diet advance as tolerated increase activity DC Rodrigues check DARCIE creat. 04/21/17 08:33 04/22/17 06:42 04/23/17 07:58 04/24/17 09:27 04/25/17 08:18 04/25/17 08:21 04/26/17 08:59 Subjective: walking with walker and RN assist no ostomy output yet Objective: Vital Signs Temp Pulse Resp BP Pulse Ox 36.6 C 85 15 128/63 H 99 04/26/17 04:00 04/26/17 04:00 04/26/17 04:00 04/26/17 04:00 04/26/17 04:00 Laboratory Results 04/24/17 04:36 04/24/17 04:36 04/25/17 04/26/17 04/27/17 05:59 05:59 05:59 Intake Total 1300 1150 Output Total 1665 1675 40 Balance -365 -525 -40 PT 14.2 SEC (12.0-15.0) 04/19/17 12:20 INR 1.11 (0.83-1.16) 04/19/17 12:20 Physical Exam - Physical Exam General Appearance: no apparent distress Abdomen: soft, distended, other (stoma and incision o.k.) Rectal: other (perineal incision o.k.) Skin: warm/dry Neuro/Psych: normal mood/affect, oriented x 3 ICD10 Worksheet Patient Problems: Problems Problem Status Onset Diabetes mellitus type 2 Active Gastritis Active Gout Active Hyperlipidemia Active Hypertensive disorder, systemic arterial Active Chronic Disease Management/Transitional Care Program Acute
--- NOTE | 2017-04-26 11:30 | HOSPPROG ---
Hospitalist Progress Note Assessment/Plan: 87-year-old female with known rectal carcinoma, status post abdominal perineal resection on 04/19. Patient has known CKD, stage III, and CHF with diastolic dysfunction. new to my care 04/24 with: #hypokalemia (resolved) -refusing po K+ replacement due to gi upset #permanent atrial fibrillation: -Prince Vasc 2 score of 7.5% per year risk of stroke. -pt understands risk of stroke while off of anticoagulation and does not want to take coumadin or other anticoagulants with the exception of asa again again. -Chronic kidney disease stage 3: Known baseline creatinine between 1.0 and 1.6. Creatinine today is 1.2. She is receiving torsemide 20mg per day. Currently awake we are controlling both her volume status and preserving her renal function with this half dose. Plan to continue to watch the creatinine and her I and O. as she continues and improves and has oral intake will return to her full dose of diuretic. -recurrent rectal carcinoma: She is a high risk for DVT. will change heparin to lovenox -anemia with blood loss postoperatively and preoperatively. Patient is status post 1 unit PRBC. Hemoglobin currently 8.8. No signs of bleeding are noted.Will continue to follow on a daily basis. - Hypokalemia: New problem. Will replete orally. -postop ileus: No significant ostomy output. Patient is currently on a clear to full liquid diet and tolerating it. -chronic diastolic CHF: No signs of decompensation and patient tolerating torsemide at half dose nicely. -mild hypoxemia probably secondary to atelectasis she is currently on 3 L nasal prong oxygen. No significant history of pulmonary disease. -ECG shows LBBB. No complaints of chest pain. ECG is interpreted personally by myself. - Disposition: Unknown will need a SNF placement. pt requests to have spencer stay in despite risks of infection Subjective: still without ostomy output. no new complaints. improving strength Objective: Vital Signs Temp Pulse Resp BP Pulse Ox 36.8 C 80 16 130/51 H 92 04/26/17 10:29 04/26/17 10:35 04/26/17 10:29 04/26/17 10:35 04/26/17 10:35 Laboratory Results 04/24/17 04:36 04/24/17 04:36 04/25/17 04/26/17 04/27/17 05:59 05:59 05:59 Intake Total 1300 1150 Output Total 1669 9215 440 Balance -365 -525 -440 PT 14.2 SEC (12.0-15.0) 04/19/17 12:20 INR 1.11 (0.83-1.16) 04/19/17 12:20 - Physical Exam Cardiovascular: regular rate and rhythym, no murmur, rub, or gallop Respiratory: no respiratory distress, no rales or rhonchi, clear to auscultation Gastrointestinal: soft, non-tender abdomen, no palpable masses, other ( hypoactive bowel sounds), No guarding, No rebound ICD10 Worksheet Patient Problems: Problems Problem Status Onset Hypertensive disorder, systemic arterial Active Gastritis Active Hyperlipidemia Active Diabetes mellitus type 2 Active Gout Active Chronic Disease Management/Transitional Care Program Acute
[2017-04-26] MEDS: ZOLPIDEM TARTRATE 5 MG TAB PO PRN (20:32)
[2017-04-26] MEDS: ATORVASTATIN CALCIUM 40 MG TAB PO SCH (20:32)
[2017-04-26] MEDS: DOXAZOSIN MESYLATE 4 MG TAB PO SCH (20:32)
[2017-04-27] MEDS: LEVOTHYROXINE 100 MCG TAB PO SCH (06:27)
--- NOTE | 2017-04-27 08:10 | SOAPPROG ---
SOAP Progress Note Assessment/Plan: Assessment: Improving, ostomy functioning and patient more mobile. Cont DARCIE due to OP. Consider transfer to SNF/rehab, d/w patient. Plan: 04/27/17 08:08 04/27/17 08:10 Subjective: Patient feels better, some incisional pain controlled with po meds. Kush po well. Ostomy functioning. Objective: Vital Signs Temp Pulse Resp BP Pulse Ox 36.7 C 76 16 122/56 H 99 04/27/17 07:30 04/27/17 07:30 04/27/17 07:30 04/27/17 07:30 04/27/17 07:30 Laboratory Results 04/24/17 04:36 04/24/17 04:36 04/26/17 04/27/17 04/28/17 05:59 05:59 05:59 Intake Total 1150 950 Output Total 1675 810 Balance -525 140 PT 14.2 SEC (12.0-15.0) 04/19/17 12:20 INR 1.11 (0.83-1.16) 04/19/17 12:20 Alert, NAD Abd soft, [employer] C/D/I Ostomy viable DARCIE serosang, OP 300 overnight ICD10 Worksheet Patient Problems: Problems Problem Status Onset Diabetes mellitus type 2 Active Gastritis Active Gout Active Hyperlipidemia Active Hypertensive disorder, systemic arterial Active Chronic Disease Management/Transitional Care Program Acute
[2017-04-27] MEDS: HYDROCODONE/APAP 5/325 TAB PO PRN ×3 (09:44→20:56)
[2017-04-27] MEDS: SERTRALINE HCL 50 MG TAB PO SCH (09:45)
[2017-04-27] MEDS: TORSEMIDE 20 MG TAB PO SCH ×2 (09:50→09:59)
[2017-04-27] MEDS: ENOXAPARIN 40 MG/0.4 ML SYR SC SCH (09:52)
--- NOTE | 2017-04-27 14:42 | HOSPPROG ---
Hospitalist Progress Note Assessment/Plan: 87-year-old female with known rectal carcinoma, status post abdominal perineal resection on 04/19. Patient has known CKD, stage III, and CHF with diastolic dysfunction. new to my care 04/24 with: #permanent atrial fibrillation: -Prince Vasc 2 score of 7.5% per year risk of stroke. -pt understands risk of stroke while off of anticoagulation and does not want to take coumadin or other anticoagulants with the exception of asa again again. -Chronic kidney disease stage 3: Known baseline creatinine between 1.0 and 1.6. Creatinine today is 1.2. * At baseline -recurrent rectal carcinoma: She is a high risk for DVT - Lovenox -anemia secondary to acute blood loss * Stable -postop ileus: * Resolved * Eating -chronic diastolic CHF: No signs of decompensation * On half dose diuretic * May need to increase on discharge -mild hypoxemia probably secondary to atelectasis she is currently on 3 L nasal prong oxygen. No significant history of pulmonary disease. -ECG shows LBBB. No complaints of chest pain. ECG is interpreted personally by myself. - Disposition: [facility] Subjective: some mild incisional pain. Eating Objective: Vital Signs Temp Pulse Resp BP Pulse Ox 36.7 C 76 16 122/56 H 99 04/27/17 07:30 04/27/17 07:30 04/27/17 07:30 04/27/17 07:30 04/27/17 07:30 Laboratory Results 04/24/17 04:36 04/24/17 04:36 04/26/17 04/27/17 04/28/17 05:59 05:59 05:59 Intake Total 1150 950 Output Total 1675 810 250 Balance -525 140 -250 PT 14.2 SEC (12.0-15.0) 04/19/17 12:20 INR 1.11 (0.83-1.16) 04/19/17 12:20 - Physical Exam Constitutional: no apparent distress, appears nourished, not in pain Eyes: anicteric sclera, EOMI Ears, Nose, Mouth, Throat: moist mucous membranes Cardiovascular: regular rate and rhythym, systolic murmur Respiratory: no respiratory distress, no rales or rhonchi, clear to auscultation Gastrointestinal: normoactive bowel sounds, soft, non-tender abdomen, no palpable masses, other (Colostomy) Skin: warm Neurologic: AAOx3 Psychiatric: interacting appropriately, not anxious, not encephalopathic, thought process linear ICD10 Worksheet Patient Problems: Problems Problem Status Onset Diabetes mellitus type 2 Active Gastritis Active Gout Active Hyperlipidemia Active Hypertensive disorder, systemic arterial Active Chronic Disease Management/Transitional Care Program Acute
[2017-04-27 16:08] LABS: COLOR YELLOW; LEUKOCYTE ESTERASE,URINE 3+ (NEGATIVE); NITRITE,URINE POSITIVE (NEGATIVE)
[2017-04-27 16:18] LABS: BACTERIA TRACE /hpf (NONE SEEN); MUCUS TRACE /lpf (NONE-1+); RBC,URINE 50-182 /hpf (0-3); WBC,URINE 50-182 /hpf (0-3)
[2017-04-27] MEDS: ZOLPIDEM TARTRATE 5 MG TAB PO PRN (20:52)
[2017-04-27] MEDS: ATORVASTATIN CALCIUM 40 MG TAB PO SCH (20:52)
[2017-04-27] MEDS: DOXAZOSIN MESYLATE 4 MG TAB PO SCH (20:52)
[2017-04-28] MEDS: LEVOTHYROXINE 100 MCG TAB PO SCH (04:39)
[2017-04-28] MEDS ORDERED: HYDROCODONE/APAP 5/325 TAB PO PRN (07:49)
--- NOTE | 2017-04-28 07:49 | SOAPPROG ---
SOAP Progress Note Assessment/Plan: Assessment: Improving, reg diet. Plan SNF when available. Cont DARCIE due to OP. Plan: 04/27/17 08:08 04/27/17 08:10 04/28/17 07:48 Subjective: Patient feels better, pain improved. Ambulating with assist. Kush po well, ostomy functioning. Objective: Vital Signs Temp Pulse Resp BP Pulse Ox 36.4 C 81 18 120/60 96 04/28/17 04:00 04/28/17 04:00 04/28/17 04:00 04/28/17 04:00 04/28/17 04:00 Laboratory Results 04/24/17 04:36 04/24/17 04:36 04/27/17 04/28/17 04/29/17 05:59 05:59 05:59 Intake Total 950 750 Output Total 810 800 Balance 140 -50 PT 14.2 SEC (12.0-15.0) 04/19/17 12:20 INR 1.11 (0.83-1.16) 04/19/17 12:20 Alert, NAD Abd soft, [employer] C/D/I DARCIE serous ICD10 Worksheet Patient Problems: Problems Problem Status Onset Diabetes mellitus type 2 Active Gastritis Active Gout Active Hyperlipidemia Active Hypertensive disorder, systemic arterial Active Chronic Disease Management/Transitional Care Program Acute
[2017-04-28 08:01] VITALS: TEMP 97.9
[2017-04-28 08:35] VITALS: BP 139/76; PULSE 72; RESP 16; O2SAT 96
[2017-04-28] MEDS: SERTRALINE HCL 50 MG TAB PO SCH (09:17)
[2017-04-28] MEDS: TORSEMIDE 20 MG TAB PO SCH (09:17)
[2017-04-28] MEDS: ENOXAPARIN 40 MG/0.4 ML SYR SC SCH (09:18)
--- NOTE | 2017-04-28 12:53 | PDIAF ---
- Diagnosis Diagnosis: rectal cancer Code Status: Full Code - Medication Management Discharge Medications: Medications to Continue on Transfer Atorvastatin Calcium [Lipitor 40 mg (*)] 40 mg PO HS 06/08/15 [Last Taken ] Doxazosin Mesylate [Cardura 4 MG (*)] 4 mg PO HS 06/08/15 [Last Taken 04/18/17] Levothyroxine [Synthroid 100 mcg (*)] 100 mcg PO DAILY 06/08/15 [Last Taken 10:00] Zolpidem Tartrate [Ambien 5MG (*)] 5 mg PO HS 06/08/15 [Last Taken 04/18/17] Herbals/Supplements -Info Only 1 ea PO DAILY 04/12/17 [Last Taken 04/12/17] Sertraline HCl [Zoloft 50mg (*)] 50 mg PO DAILY 04/12/17 [Last Taken 04/18/17 10 :00] Cefuroxime Axetil [Ceftin] 250 mg PO BID 7 Days 04/28/17 [Last Taken Unknown] Hydrocodone/Acetaminophen [Hydrocodon-Acetaminophn 10-325] 1 - 2 each PO Q6 PRN #1 tablet 04/28/17 [Last Taken Unknown] Torsemide [Demadex] 20 mg PO DAILY #1 tablet 04/28/17 [Last Taken Unknown] Snf Antibiotics: Ceftin 250 mg po bid Snf Antibiotic Stop Date: 05/05/17 Discharge Medications: Refer to the Discharge Home Medication list for PRN reason. - Orders Services needed: Physical Therapy, Occupational Therapy - Follow Up Care Current Providers and Referrals: Melonie Zuniga MD [Primary Care Provider] - Erickson Torres MD [Medical Doctor] - follow up in 2 weeks
--- NOTE | 2017-04-28 16:37 | GDS ---
[f rep st] DISCHARGE SUMMARY DISCHARGE DIAGNOSES: 1. Recurrence of rectal cancer status post resection. 2. Chronic kidney disease. 3. Atrial fibrillation. 4. Anemia secondary to acute blood loss. 5. Chronic hypoxic respiratory failure. 6. Urinary tract infection. HISTORY: An 87-year-old female who presented with elective abdominoperineal resection of rectal can cer. HOSPITAL COURSE: The patient was admitted. The patient underwent surgery without complication. Sushma sanders was transfused a unit of packed red blood cells. She had done well from a recovery standpoint and had no major complications. She did have a urinary tract infection toward the end of her hospitalization. She will be treated w ith 7 days of Ceftin for that. We also decreased her furosemide from 40 mg to 20 mg and she has bee n tolerating that well. If she does begin to develop more edema, then I would recommend increasing that back to 40 mg daily. [facility]POSITION[facility] DISCHARGE MEDICATIONS: Please see medication list. FOLLOWUP INSTRUCTIONS: She is instructed to follow up with Dr. Torres in 2 weeks. TIME SPENT: Greater than 30 minutes was spent on discharge. /[id number]/MODL
--- NOTE | 2017-05-20 15:26 | GOP ---
[f rep st] OPERATIVE REPORT DATE OF OPERATION: 04/19/2017 SURGEON: Michel Ruth MD PREOPERATIVE DIAGNOSIS: Left ureteral injury. POSTOPERATIVE DIAGNOSIS: Left ureteral injury. PROCEDURE PERFORMED: Resection of segment of ureter, and primary ureteroureterostomy over a uretera l stent. FINDINGS: INDICATIONS: The patient is a lady, who underwent an abdominoperineal resection for recurrent recta l cancer by Drs. Torres and Romulo. During dissection of the left peritoneal sidewall, an injury to the left ureter occurred. Urology consultation was requested. Examination showed a Harmonic scalpe l thermal injury to a small segment of the lower left ureter. At this point, it was decided to exci se this segment and perform a primary ureteroureterostomy. DESCRIPTION OF PROCEDURE: With exposure, the portion of the ureter that had been thermally injured was excised. The edges of the ureter were then each spatulated. A 6-Icelandic ureteral stent was pass ed within the operative field, and a running closure using 4-0 PDS was used for the ureteroureterost charanjit. At this point, the remaining portion of the procedure was performed by Dr. Torres, and a portion of the omentum was placed over the area of repair. A second Yoan-Lamb drain was placed, as wel l. For this portion the procedure, there was no bleeding or complications. /[id number]/MODL
== END 2017-04-28 13:10 | DRG 330 ==
LOC: F3E 11:06 → F1N 19:55
PROVIDERS: ADMIT Surgery; ATTEND Surgery
PROC: 0D1N0Z4 Bypass Sigmoid Colon to Cutaneous, Open Approach (ICD-10-PCS; principal; 2017-04-19 13:00)
PROC: 0DTP0ZZ Resection of Rectum, Open Approach (ICD-10-PCS; principal; 2017-04-19 13:00)
PROC: 0T170Z7 Bypass Left Ureter to Left Ureter, Open Approach (ICD-10-PCS; principal; 2017-04-19 13:00)
PROC: 30233N1 Transfusion of Nonautologous Red Blood Cells into Peripheral Vein, Percutaneous Approach (ICD-10-PCS; 2017-04-21)
DX: C20 Malignant neoplasm of rectum (principal); D62 Acute posthemorrhagic anemia; J96.11 Chronic respiratory failure with hypoxia; N39.0 Urinary tract infection, site not specified; I13.0 Hypertensive heart and chronic kidney disease with heart failure and stage 1 through stage 4 chronic kidney disease, or unspecified chronic kidney disease; I50.32 Chronic diastolic (congestive) heart failure; J98.11 Atelectasis; K52.0 Gastroenteritis and colitis due to radiation; N18.3 Chronic kidney disease, stage 3 (moderate); T81.89XA Other complications of procedures, not elsewhere classified, initial encounter; T28.3XXA Burn of internal genitourinary organs, initial encounter; I48.2 Chronic atrial fibrillation; E03.9 Hypothyroidism, unspecified; M10.9 Gout, unspecified; E11.9 Type 2 diabetes mellitus without complications; E78.5 Hyperlipidemia, unspecified; Z87.891 Personal history of nicotine dependence; I44.7 Left bundle-branch block, unspecified; I25.10 Atherosclerotic heart disease of native coronary artery without angina pectoris
CPT/HCPCS: 97116-GP; 97161-GP; 97166-GO; 97530-GO; 97530-GP; 97535-GO; C1769; C2625; G8978-GP-CL; G8979-GP-CJ; G8987-GO-CL; G8988-GO-CI; J0694; J0696; J1100; J1170; J1650; J1940; J2250; J2405; J2704; J3010; P9016; P9041

== ENCOUNTER 2017-07-04 11:49 | Emergency (ER) | payer OTHER, MEDICARE ==
--- NOTE | 2017-07-04 13:00 | EDPHY ---
H & P Stated Complaint: Syncope? vomiting Time Seen by Provider: 07/04/17 12:59 HPI/ROS: CHIEF COMPLAINT: Vomiting, single episode of syncope HISTORY OF PRESENT ILLNESS: The patient presents to the ED after a episode of vomiting followed by syncope. The patient attributes her symptoms secondary to taking a potassium pill. The patient did fall landing on her coccyx. She complains of mild sacral pain. She has been unable to get up and ambulate secondary to pain. The patient did not strike her head or lose consciousness. She has no complaints of headache, neck pain, chest pain, shortness of breath, fever, vomiting or urinary symptoms. The patient was treated for urinary tract infection approximately 1 week ago. The patient denies any additional traumatic complaints. The patient reports she is not anticoagulated. REVIEW OF SYSTEMS: A comprehensive 10 point review of systems is otherwise negative aside from elements mentioned in the history of present illness. Source: Patient Exam Limitations: No limitations - Personal History Current Tetanus/Diphtheria Vaccine: Unsure Current Tetanus Diphtheria and Acellular Pertussis (TDAP): Unsure Tetanus Vaccine Date: current - Medical/Surgical History Hx Asthma: No Hx Chronic Respiratory Disease: Yes Hx Diabetes: Yes Hx Cardiac Disease: Yes Hx Renal Disease: Yes Hx Cirrhosis: No Hx Alcoholism: No Hx HIV/AIDS: No Hx Splenectomy or Spleen Trauma: No Other PMH: S/P HYST;CHRONIC AFIB W/ 5 CARDIOVERSION'S;LBBB;RENAL INSUFF.;HTN;CVA ;HYPOTHYROIDISM;DIABETES;GOUT;DEPRESSION;RECURRENT RECTAL CANCERASTHMA;ANEMIA - Social History Smoking Status: Former smoker - Physical Exam Exam: General Appearance: Elderly female, no acute distress Head: Small contusion, nonsuturable laceration Eyes: Pupils equal and round no pallor or injection ENT, Mouth: Mucous membranes moist Respiratory: There are no retractions, lungs are clear to auscultation Cardiovascular: Regular rate and rhythm Gastrointestinal: Ostomy is pink, no focal abdominal tenderness Neurological: A&O, normal motor function, normal sensory exam, normal cranial nerves Skin: Warm and dry, no rashes Musculoskeletal: Tenderness to palpation noted throughout the sacral area, no crepitus or hematoma noted Extremities: symmetrical, full range of motion Constitutional: Initial Vital Signs Temperature (C) 36.6 C 07/04/17 11:55 Heart Rate 77 07/04/17 11:55 Respiratory Rate 18 07/04/17 11:55 Blood Pressure 150/61 H 07/04/17 11:55 O2 Sat (%) 88 L 07/04/17 11:55 O2 Delivery Mode Nasal Cannula O2 (L/minute) 2 Allergies/Adverse Reactions: Iodinated Contrast- Oral and IV Dye [IV Dye, Iodine Containing Contrast ] Allergy (Intermediate, Verified 02/01/15 17:04) Hives iodine [Iodine] Allergy (Intermediate, Verified 02/01/15 17:04) Hives kiwi Allergy (Verified 07/04/17 11:58) latex Allergy (Verified 04/12/17 10:50) Home Medications: Medication Instructions Recorded Atorvastatin Calcium [Lipitor 40 40 mg PO HS 06/08/15 mg (*)] Doxazosin Mesylate [Cardura 4 MG 4 mg PO HS 06/08/15 (*)] Levothyroxine [Synthroid 100 mcg 100 mcg PO DAILY 06/08/15 (*)] Zolpidem Tartrate [Ambien 5MG (*)] 5 mg PO HS 06/08/15 Herbals/Supplements -Info Only 1 ea PO DAILY 04/12/17 Sertraline HCl [Zoloft 50mg (*)] 50 mg PO DAILY 04/12/17 Cefuroxime Axetil [Ceftin] 250 mg PO BID 7 Days tab 04/28/17 Hydrocodone/Acetaminophen 1 - 2 each PO Q6 PRN #1 tablet 04/28/17 [Hydrocodon-Acetaminophn 10-325] Torsemide [Demadex] 20 mg PO DAILY #1 tablet 04/28/17 Medical Decision Making - Diagnostics EKG Interpretation: EKG: Complete interpretation has been separately recorded in the [facility] archive. Summary impression: AFib, rate 77, left bundle branch block Imaging Results: Imaging Impressions Pelvis X-Ray 07/04/17 13:11 Impression: 1. Recommend CT of the pelvis for further evaluation of the sacrum. 2. No definite iliac bone fracture. 3. Degenerative lower lumbar spine. Findings and recommendations discussed with Emergency Department physician, Dr. Shoaib Joe at 1536 hours on July 04, 2017. Final report concurs with initial preliminary interpretation. ED Course/Re-evaluation: The patient presents to the ED after a syncopal episode from vomiting. The patient's abdominal examination is benign. The patient's EKG demonstrates chronic atrial fibrillation. The patient is noted to be neurologically intact. Her atrial fibrillation shoulder. The patient is not anticoagulated. Her chief traumatic complaints sacral pain. She has minimal tenderness in her sacrum. Pelvic x-ray in straight evidence of a ring, pubic ramus or hip fracture. The patient is ambulatory in the Emergency department. She is feeling better after receiving IV fluids. She is ambulatory. The patient would like to be discharged home. At this point time she has no evidence of any abnormal vital signs. She has no evidence of a significant fracture on her x-ray. She does understand that we cannot exclude a school insufficiency fracture but given the fact she is ambulatory I do not feel that this needs to be pursued. The patient will be discharged home and instructed to follow up with her primary care provider as scheduled. Differential Diagnosis: Differential diagnosis considered includes arrhythmia, anemia, metabolic abnormality, renal failure, pelvic fracture, hip fracture, sacral fracture - Data Points Laboratory Results: Laboratory Results 07/04/17 11:55 07/04/17 11:55 07/04/17 07/04/17 11:55 11:55 WBC 6.07 10^3/uL 10^3/uL (3.80-9.50) RBC 3.73 10^6/uL L 10^6/uL (4.18-5.33) Hgb 10.3 g/dL L g/dL (12.6-16.3) Hct 33.7 % L % (38.0-47.0) MCV 90.3 fL fL (81.5-99.8) MCH 27.6 pg L pg (27.9-34.1) MCHC 30.6 g/dL L g/dL (32.4-36.7) RDW 14.5 % % (11.5-15.2) Plt Count 172 10^3/uL 10^3/uL (150-400) MPV 11.9 fL H fL (8.7-11.7) Neut % (Auto) 81.9 % H % (39.3-74.2) Lymph % (Auto) 9.2 % L % (15.0-45.0) [place] % (Auto) 6.1 % % (4.5-13.0) Eos % (Auto) 1.8 % % (0.6-7.6) Baso % (Auto) 0.7 % % (0.3-1.7) Nucleat RBC Rel Count 0.0 % % (0.0-0.2) Absolute Neuts (auto) 4.97 10^3/uL 10^3/uL (1.70-6.50) Absolute Lymphs (auto) 0.56 10^3/uL L 10^3/uL (1.00-3.00) Absolute Monos (auto) 0.37 10^3/uL 10^3/uL (0.30-0.80) Absolute Eos (auto) 0.11 10^3/uL 10^3/uL (0.03-0.40) Absolute Basos (auto) 0.04 10^3/uL 10^3/uL (0.02-0.10) Absolute Nucleated RBC 0.00 10^3/uL 10^3/uL (0-0.01) Immature Gran % 0.3 % % (0.0-1.1) Immature Gran # 0.02 10^3/uL 10^3/uL (0.00-0.10) Sodium 142 mEq/L mEq/L (134-144) Potassium 4.0 mEq/L mEq/L (3.5-5.2) Chloride 106 mEq/L mEq/L (97-110) Carbon Dioxide 24 mEq/l mEq/l (22-31) Anion Gap 12 mEq/L mEq/L (8-16) BUN 36 mg/dL H mg/dL (7-23) Creatinine 1.2 mg/dL H mg/dL (0.6-1.0) Estimated GFR 42 Glucose 167 mg/dL H mg/dL (70-100) Calcium 9.5 mg/dL mg/dL (8.5-10.4) Departure - Departure Disposition: Home, Routine, Self-Care Clinical Impression: Syncope, Vomiting, Sacral contusion Condition: Good Instructions: Syncope (ED) Additional Instructions: 1. Please return to the ED for headache, recurrent vomiting, numbness, weakness , worsening pain or other concerns. 2. Please follow up with your primary care provider as scheduled. Referrals: Melonie Zuniga MD [Primary Care Provider] - As per Instructions
--- NOTE | 2017-07-04 13:00 | CPEKG ---
Heart Rate: 77 RR Interval: 779 QRSD Interval: 152 QT Interval: 432 QTC Interval: 489 QRS [place]: -30 T Wave [place]: 134 EKG Severity - ABNORMAL ECG - EKG Impression: ATRIAL FIBRILLATION, V-RATE 59-96 EKG Impression: LEFT BUNDLE BRANCH BLOCK Electronically Signed By: Shoaib Joe 04-Jul-2017 21:13:43
[2017-07-04 13:08] LABS: % IMMATURE GRANULYOCYTES 0.3 % (0.0-1.1); ABSOLUTE IMMATURE GRANULOCYTES 0.02 10^3/uL (0.00-0.10); ADD DIFF? NO; ADD MORPH? NO; ADD SCAN? NO; ATYPICAL LYMPHOCYTE FLAG 0 (0-99); FRAGMENT RBC FLAG 0 (0-99); HEMATOCRIT 33.7 % (38.0-47.0); HEMOGLOBIN 10.3 g/dL (12.6-16.3); LEFT SHIFT FLG 0 (0-99); LIPEMIA HEMOLYSIS FLAG 80 (0-99); MEAN CELL HEMOGLOBIN 27.6 pg (27.9-34.1); MEAN CELL HEMOGLOBIN CONCENTR. 30.6 g/dL (32.4-36.7); MEAN CELL VOLUME 90.3 fL (81.5-99.8); MEAN PLATELET VOLUME 11.9 fL (8.7-11.7); PLATELET CLUMPS FLAG 10 (0-99); PLATELET COUNT 172 10^3/uL (150-400); RED BLOOD CELL COUNT 3.73 10^6/uL (4.18-5.33); RED CELL DISTRIBUTION WIDTH 14.5 % (11.5-15.2)
[2017-07-04 13:27] LABS: CALCIUM 9.5 mg/dL (8.5-10.4); CARBON DIOXIDE 24 mEq/l (22-31); CREATININE 1.2 mg/dL (0.6-1.0); GLOMERULAR FILTRATION RATE 42; GLUCOSE 167 mg/dL (70-100); SODIUM 142 mEq/L (134-144)
[2017-07-04 13:34] LABS: ANION GAP 12 mEq/L (8-16); CHLORIDE 106 mEq/L (97-110)
[2017-07-04 16:29] VITALS: BP 100/83; PULSE 68; RESP 20; TEMP 98.2; O2SAT 96
== END 2017-07-04 16:28 | disposition home or self-care (01) ==
LOC: EDUNIT#
DX: S30.0XXA Contusion of lower back and pelvis, initial encounter (principal); R55 Syncope and collapse; R11.10 Vomiting, unspecified; E11.9 Type 2 diabetes mellitus without complications; Z86.73 Personal history of transient ischemic attack (TIA), and cerebral infarction without residual deficits; Z87.891 Personal history of nicotine dependence; W18.39XA Other fall on same level, initial encounter